=== PATIENT | male | born 1955 | race Caucasian/White ===

== ENCOUNTER 2017-01-04 06:47 | Day surgery (SDC) | payer BC ==
[2017-01-03 10:00] VITALS: BMI 24.0
[~2017-01-04 06:47] MED LIST: LACTATED RINGERS 1,000 ML IV SCH
[2017-01-04 07:09] VITALS: RESP 16; TEMP 98
[2017-01-04] MEDS ORDERED: PROPOFOL 10 MG/ML 20 ML VIAL IV ONE (07:57)
--- NOTE | 2017-01-04 08:13 | P.PCN ---
Date of Procedure: 01/04/17 Preoperative Diagnosis: Postoperative Diagnosis: Procedure(s) Performed: BRIEF HISTORY: Patient is a 61-year-old pleasant white male, scheduled for an elective colonoscopy as a part o screening for colorectal neoplasia. f PROCEDURE PERFORMED: Colonoscopy with biopsy. PREOPERATIVE DIAGNOSIS: Screening for colon cancer. IV sedation per Anesthesia. PROCEDURE: After informed consent was obtained, the patient, was brought into the endoscopy unit. IV sedation was administered by Anesthesia under continuous monitoring. Digital rectal examination was normal. Initially the Olympus CF- 160 flexible video colonoscope was then inserted in the rectum, gradually advanced into the cecum without any difficulty. Careful examination was performed as the scope was gradually being withdrawn. Ileocecal valve and the appendiceal orifice were visualized and appeared normal. Prep was excellent. Mucosa of the cecum, ascending colon, transverse colon, descending colon, sigmoid colon, and rectum appeared normal. Retroflexion was performed in the rectum and a 5 mm polyp was noted just proximal to the dentate line which was removed by biopsy. The patient tolerated the procedure well. IMPRESSION: 5 mm distal rectal polyp status post removal by biopsy. Rest of the colon appeared normal. RECOMMENDATIONS: Findings of this examination were discussed with the patient as well as his family. He was advised to follow with the biopsy results, and the biopsy shows a tubular adenoma she he can have a repeat colonoscopy in 5 years. Implants: Indications for Procedure: Operative Findings: Description of Procedure:
[2017-01-04 08:48] VITALS: BP 119/72; PULSE 69
== END 2017-01-04 09:01 | disposition home or self-care (01) ==
LOC: ORWHC2ENDO 06:47
PROVIDERS: ATTEND Internal Medicine Gastroenterology
DX: Z12.11 Encounter for screening for malignant neoplasm of colon (principal); D12.8 Benign neoplasm of rectum; I10 Essential (primary) hypertension; Z88.4 Allergy status to anesthetic agent; Z79.891 Long term (current) use of opiate analgesic; Z79.82 Long term (current) use of aspirin; Z79.899 Other long term (current) drug therapy
CPT/HCPCS: 45380; 88305; J2704

== ENCOUNTER → 2019-06-19 | Outpatient (CLI) | payer BC | END | disposition home or self-care (01) | LOC: RADECHMAIN 11:52 | PROVIDERS: ATTEND Family Medicine | DX: I47.1 Supraventricular tachycardia (principal); I49.1 Atrial premature depolarization | CPT/HCPCS: 93225; 93226 ==

== ENCOUNTER 2019-08-22 23:31 | Observation (INO) | payer BC ==
[2019-08-22 23:38] VITALS: RESP 18
--- NOTE | 2019-08-22 23:46 | ED ---
Chest Pain HPI - General Chief Complaint: Chest Pain Stated Complaint: STEMI Time Seen by Provider: 08/22/19 23:39 Source: EMS Mode of arrival: EMS Limitations: no limitations - History of Present Illness Initial Comments: This patient is a 63-year-old man with history of hypertension. He was sitting and playing cards a little under an hour ago, when he started feeling funny like he was going to pass out. The patient states she was going to go outside but felt too lightheaded. He states his son helped him to a little more comfortable seat and then he did have a passing out episode. The family activated EMS and EMS had radioed that the patient had ST elevation on their EKG. We were not able to receive an EKG by telemetry. On arrival, the patient states that he is feeling a bit better. He is denying chest pain and dyspnea. He states that he was sweaty when the episode occurred. Patient notes that he has recently started seeing Dr. Rosas, about 10 days ago. MD Complaint: other -: minutes(s) Onset: during rest Severity scale (1-10): 0 Improves With: nothing Worsens With: nothing Anginal Symptoms: diaphoresis Treatments Prior to Arrival: aspirin, oxygen - Related Data Home Medications Medication Instructions Recorded Confirmed Aspirin 81 mg PO DAILY 10/23/14 08/22/19 Metoprolol Tartrate [Lopressor] 25 mg PO BID 10/25/14 08/22/19 Hydrochlorothiazide [Hydrodiuril] 25 mg PO DAILY 08/22/19 08/22/19 amLODIPine [Norvasc] 5 mg PO DAILY 08/22/19 08/22/19 Allergies Allergy/AdvReac Type Severity Reaction Status Date / Time lidocaine HCl Allergy Unknown Verified 01/04/17 07:12 [From Xylocaine] losartan Allergy Rash/Hives Verified 08/22/19 23:38 Review of Systems ROS Statement: Those systems with pertinent positive or pertinent negative responses have been documented in the HPI. ROS Other: All systems not noted in ROS Statement are negative. Constitutional: Denies: fever, chills, weakness Respiratory: Denies: cough, dyspnea Cardiovascular: Reports: syncope. Denies: chest pain, palpitations, orthopnea, edema Gastrointestinal: Denies: abdominal pain, nausea, vomiting Genitourinary: Denies: dysuria, hematuria Musculoskeletal: Denies: back pain Skin: Denies: rash Neurological: Denies: headache, weakness, numbness EKG Findings - EKG Results: EKG: interpreted by ERMD, sinus rhythm (Rate approximately 80 bpm), normal axis, normal QRS Past Medical History Past Medical History: Hypertension Additional Past Medical History / Comment(s): tachycardia, History of Any Multi-Drug Resistant Organisms: None Reported Past Surgical History: Appendectomy, Hernia Repair Additional Past Surgical History / Comment(s): umbilical hernia, ORIF right ankle, Past Anesthesia/Blood Transfusion Reactions: No Reported Reaction Past Psychological History: No Psychological Hx Reported Smoking Status: Current every day smoker Past Alcohol Use History: None Reported Past Drug Use History: None Reported - Past Family History Sister(s) Family Medical History: Cancer General Exam Limitations: no limitations General appearance: alert, in no apparent distress Head exam: Present: atraumatic, normocephalic Eye exam: Present: normal appearance. Absent: scleral icterus, conjunctival injection ENT exam: Present: normal oropharynx Neck exam: Present: normal inspection Respiratory exam: Present: normal lung sounds bilaterally. Absent: respiratory distress, wheezes, rales, rhonchi, stridor Cardiovascular Exam: Present: regular rate, normal rhythm, normal heart sounds. Absent: systolic murmur, diastolic murmur, rubs, gallop GI/Abdominal exam: Present: soft. Absent: distended, tenderness, guarding, rebound, rigid, mass Extremities exam: Present: normal inspection, normal capillary refill. Absent: pedal edema, calf tenderness Back exam: Present: normal inspection. Absent: CVA tenderness (R), CVA tenderness (L) Neurological exam: Present: alert Skin exam: Present: warm, dry, intact, normal color. Absent: rash Course Vital Signs 08/22/19 08/22/19 08/22/19 23:32 23:49 23:59 Temperature 97.4 F L Pulse Rate 88 81 70 Respiratory 18 18 18 Rate Blood Pressure 143/93 139/104 133/99 O2 Sat by Pulse 100 100 100 Oximetry - Reevaluation(s) Reevaluation #1: 08/22/19 23:59 Patient is a 63-year-old man brought by ambulance after syncopal episode. We did receive a call from EMS that there twelve-lead ECG was showing what appeared to be inferior STEMI. We were not able to receive the ECG by telemetry. I discussed case with Dr. Rosas, who requested that we activate the greenskeeper laborer. On arrival here, the 12-lead ECG is not diagnostic. Dr. Rosas is evaluating the patient personall, and at this point patient does not appear to need to go directly to greenskeeper laborer. He continues to have no chest pain or dyspnea. Disposition Clinical Impression: Syncope Disposition: ADMITTED IP TO THIS HOSP Condition: Undetermined Referrals: Shelia Winter MD [Primary Care Provider] - 1-2 days
[2019-08-22 23:50] LABS: HCT 42.4 % (39.0-53.0); HGB 14.2 gm/dL (13.0-17.5); MCHC 33.5 g/dL (31.0-37.0); MCV 89.7 fL (80.0-100.0); Platelet Count 171 k/uL (150-450); RBC 4.73 m/uL (4.30-5.90); RDW 12.6 % (11.5-15.5); WBC 10.4 k/uL (3.8-10.6)
[2019-08-22] MEDS ORDERED: SODIUM CHLORIDE 0.9% 500 ML 500 ML IV STA (23:56)
[2019-08-22 23:59] LABS: Calcium 9.4 mg/dL (8.4-10.2); INR 0.9 (<1.2); Partial Thromboplastin Time 22.8 sec (22.0-30.0); Potassium 3.4 mmol/L (3.5-5.1); Prothrombin Time 9.9 sec (9.0-12.0); Total Bilirubin 0.4 mg/dL (0.2-1.3); Total Protein 6.9 g/dL (6.3-8.2)
[2019-08-23 00:12] LABS: Creatine Kinase 90 U/L (55-170)
--- NOTE | 2019-08-23 00:13 | XR ---
EXAMINATION TYPE: XR chest 1V portable DATE OF EXAM: 08/23/2019 COMPARISON: 10/25/2014 HISTORY: Short of breath. Syncope. TECHNIQUE: FINDINGS: There is no heart failure nor confluent pneumonic infiltrate. There is some scarring At the lung apices. There is no pleural effusion. Heart size is normal. IMPRESSION: Pleural and pulmonary scarring at the lung apices unchanged. No acute lung disease. Bren l heart.
[2019-08-23 00:23] LABS: Creatine Kinase MB 1.8 ng/mL (0.0-2.4); Troponin I <0.012 ng/mL (0.000-0.034)
[2019-08-23] MEDS ORDERED: NITROGLYCERIN SL TABS 0.4 MG TAB SUBLINGUAL PRN (00:32)
[2019-08-23] MEDS ORDERED: POTASSIUM CHLORIDE ER 20 MEQ TAB.ER PO STA (00:34)
[2019-08-23] MEDS ORDERED: SODIUM CHLORIDE 0.9% 500 ML 500 ML IV STA (00:34)
--- NOTE | 2019-08-23 01:43 | P.HPIM ---
History of Present Illness H&P Date: 08/23/19 Patient is a 63-year-old male with a PMH of hypertension who presented to the ED after an episode of syncope. History supplemented by the family at the bedside. Patient was reportedly at home, sitting in a chair and playing cards with his family when he suddenly began feeling lightheaded. He got up off the chair and sat into more comfortable chair, though continued to feel lightheaded and as th ough he was going to faint. He asked his son to help him and to the bathroom since he felt as though he at the time of bowel movement. While on his way to the bathroom, the patient became more lethargic and subsequently lost consciousness. The son was able to hold them and sat him down safely. As per the son, the patient was unresponsive and pale for roughly 1-2 minutes, and he then slowly began to come around. The patient then endorsed feeling very sweaty and tired upon regaining consciousness. EMS was subsequently activated and upon their arrival, and EKG strip showed some ST changes with the patient continuing to have diaphoresis and lightheadedness. A code STEMI was activated and the patient was subsequently brought to the emergency room. Upon arrival, the patient had reported that his symptoms had resolved entirely. He denied experiencing chest pain or shortness of breath during his symptoms. He denied any abnormal movements of the body or urinary incontinence. He denied tongue biting. Dr. Rosas was contacted regarding the patient, who then saw him at the bedside in the ED. The code STEMI was cancelled by Dr Rosas. The patient denied fever, cough, dizziness with standing, nausea, vomiting, abdominal pain, or headache. The patient underwent an extensive evaluation in the emergency room with an EKG that showed sinus rhythm at [address] elevation in leads II, III, V5 with no previous EKGs to compare to. Chest x-ray had revealed pleural and pulmonary scarring at the lung apices, with telemetry evaluation showing a WBC count of 10.4, hemoglobin 14.2, sodium 138, potassium 3.4, BUN 30, creatinine 1.13, and troponin less than 0.012. The patient reported that he had an episode of syncope 5 years ago, and which had not recurred since. Review of Systems Pertinent positives and negatives as discussed in HPI, a complete review of systems was performed and all other systems are negative. Past Medical History Past Medical History: Hypertension Additional Past Medical History / Comment(s): tachycardia, History of Any Multi-Drug Resistant Organisms: None Reported Past Surgical History: Appendectomy, Hernia Repair Additional Past Surgical History / Comment(s): umbilical hernia, ORIF right ankle, Past Anesthesia/Blood Transfusion Reactions: No Reported Reaction Past Psychological History: No Psychological Hx Reported Smoking Status: Current every day smoker Past Alcohol Use History: None Reported Past Drug Use History: None Reported - Past Family History Sister(s) Family Medical History: Cancer Medications and Allergies Home Medications Medication Instructions Recorded Confirmed Type Aspirin 81 mg PO DAILY 10/23/14 08/22/19 History Metoprolol Tartrate [Lopressor] 25 mg PO BID 10/25/14 08/22/19 History Hydrochlorothiazide [Hydrodiuril] 25 mg PO DAILY 08/22/19 08/22/19 History amLODIPine [Norvasc] 5 mg PO DAILY 08/22/19 08/22/19 History Allergies Allergy/AdvReac Type Severity Reaction Status Date / Time lidocaine HCl Allergy Unknown Verified 01/04/17 07:12 [From Xylocaine] losartan Allergy Rash/Hives Verified 08/22/19 23:38 Physical Exam Vitals: Vital Signs Temp Pulse Resp BP Pulse Ox 08/23/19 01:01 97.6 F 84 18 120/86 98 08/22/19 23:59 70 18 133/99 100 08/22/19 23:49 81 18 139/104 100 08/22/19 23:32 97.4 F L 88 18 143/93 100 Intake and Output 08/22/19 08/22/19 08/23/19 14:59 22:59 06:59 Other: Weight 76.385 kg General: non toxic, no distress, appears at stated age, normal weight Derm: no unusual rashes/lesions no unusual ecchymoses, warm, dry Head: atraumatic, normocephalic, symmetric Eyes: EOMI, no lid lag, anicteric sclera, pupils equal round reactive to light ENT: Nose and ears atraumatic, no thrush, no pharyngeal erythema Neck: No thyromegaly, no cervical lymphadenopathy, trachea midline, supple Mouth: no lip lesion, mucus membranes moist Cardiovascular: S1S2 reg, no murmur, positive posterior tibial pulse bilateral, no edema, capillary refill less than 2 seconds Lungs: CTA bilateral, no rhonchi, no rales , no accessory muscle use Abdominal: soft, nontender to palpation, no guarding, no appreciable organomegaly, normal bowel sounds Ext: no gross muscle atrophy, muscle strength 5 out of 5 in all 4 extremities grossly, no contractures, Neuro: CN II-XI grossly intact, light touch intact all 4 extremities, finger to nose within normal limits, Psych: Alert, oriented, appropriate affect Results CBC & Chem 7: 08/22/19 23:35 08/22/19 23:35 Labs: Abnormal Lab Results - Last 24 Hours (Table) 08/22/19 Range/Units 23:35 Potassium 3.4 L (3.5-5.1) mmol/L BUN 30 H (9-20) mg/dL Glucose 137 H (74-99) mg/dL Assessment and Plan Plan: Syncopal episode -Continue cardiac monitoring -Trend troponin -Dr. Rosas evaluated the patient at the bedside, and canceled code STEMI and recommended no immediate catheterization needed overnight -C/w Aspirin, Nitro -Echocardiogram -Orthostatics -Very unlikely to be a seizure based on the history Hypokalemia -Replace and monitor HTN -C/w home meds DVT prophylaxis -Lovenox subq The patient is admitted with an anticipated less than 2 midnight stay for evaluation of syncopal episode. CODE STATUS:Full Code Discussed with: Patient, daughter, Anticipated discharge date: 1-[address]: Home A total of 60 minutes was spent on the care of this complex patient more than 50% of the time was spent in counseling and care coordination.
[2019-08-23 07:04] LABS: African American GFR (CKD) >90 (>60 ml/min/1.73 sqM); Anion Gap 5 mmol/L; Blood Urea Nitrogen 24 mg/dL (9-20); Calcium 9.2 mg/dL (8.4-10.2); Carbon Dioxide 29 mmol/L (22-30); Chloride 105 mmol/L (98-107); Glucose 100 mg/dL (74-99); Non-African American GFR(CKD) >90 (>60 ml/min/1.73 sqM); Potassium 4.1 mmol/L (3.5-5.1); Sodium 139 mmol/L (137-145)
[2019-08-23] MEDS ORDERED: SODIUM CHLORIDE 0.9% 1,000 ML IV ONE (08:07)
--- NOTE | 2019-08-23 08:07 | P.PN ---
Progress Note - Text Progress Note Date: 08/23/19 patient seen and examined , RN at bedside Orthostatic vitals , negative patient had an episode of syncope, he is quite active around the house, with no limitations. another episode of syncope was 5 years ago had cardiac workup done for tachycardia, holter monitor showed episodes of sinus tachycardia. May 2019 he also recently had echo and stress test, records not available for review await cardiology input differential diagnosis possible dehydration , i will discontinue HCTZ. K was replaced concerned for possible arrhythmia , patient might benefit from tilt table test as outpatient await cardiology input , possible discharge today patient is asymptomatic at this time
[2019-08-23] MEDS ORDERED: amLODIPine 5 MG TAB PO SCH (09:00)
[2019-08-23] MEDS ORDERED: METOPROLOL TARTRATE 25 MG TAB PO SCH (09:00)
[2019-08-23] MEDS ORDERED: HYDROCHLOROTHIAZIDE 25 MG TAB PO SCH (09:00)
--- NOTE | 2019-08-23 09:06 | P.CRDCN ---
History of Present Illness History of present illness: This is Dr. Rosas dictating a consult on this patient The patient was interviewed and examined by me in the emergency room He was brought to the emergency room by EMS with a possible STEMI He had no chest discomfort and the STEMI was canceled IMPRESSION / ASSESSMENT: Episode of syncope associated with nausea and sweating Similar episode 4 years back Hypertension Early repolarization abnormality inferolaterally 1 mm, no notching PLAN: IV fluids 500 mL Continue antihypertensive therapy Observe on telemetry Cardiac enzymes HPI Patient was in his garage. They're having a family get together. The wood burner was turned on. The garage door was down While sitting he became very dizzy and lightheaded. The said he was staring into space for a while and he was very nauseous and extremely sweaty and then collapsed but his son caught him and time no chest discomfort no palpitations He had been doing fine prior to that He's had a similar episode about 4 years back. This was also in wintertime in the garage with the family and a wood burner was on an obviously the garage to was down. He had the exact same symptoms ROS: No fever chills or rigors, no cough, phlegm or expectoration, Positive nausea vomiting diarrhea no hematuria, dysuria, no musculoskeletal complaints, no strokes or seizures, no skin lesions. EXAMINATION: 133/99 mmHg normal heart rates Heart rate 80s Afebrile 97.6F Breath sounds are clear no rhonchi no crackles Heart sounds S1 and S2 are normal no murmurs or gallops or rub Breath sounds are clear No JVD No lower extremity edema When I examined the patient he was absolutely pain-free no shortness of breath and absolutely no symptoms REVIEW OF LABS, ECG & MEDICAL DATA Twelve-lead EKG shows early repolarization abnormality inferolaterally Sodium 139 potassium 3.4, BUN 30 creatinine 1.13 glucose 137 2 troponins are normal TSH is 3.8 Past Medical History Past Medical History: Hypertension Additional Past Medical History / Comment(s): tachycardia, History of Any Multi-Drug Resistant Organisms: None Reported Past Surgical History: Appendectomy, Hernia Repair Additional Past Surgical History / Comment(s): umbilical hernia, ORIF right ankle, Past Anesthesia/Blood Transfusion Reactions: No Reported Reaction Past Psychological History: No Psychological Hx Reported Smoking Status: Current every day smoker Past Alcohol Use History: None Reported Past Drug Use History: None Reported - Past Family History Sister(s) Family Medical History: Cancer Medications and Allergies Home Medications Medication Instructions Recorded Confirmed Type Aspirin 81 mg PO DAILY 10/23/14 08/23/19 History Metoprolol Tartrate [Lopressor] 25 mg PO BID 10/25/14 08/23/19 History Hydrochlorothiazide [Hydrodiuril] 25 mg PO DAILY 08/22/19 08/23/19 History amLODIPine [Norvasc] 5 mg PO DAILY 08/22/19 08/23/19 History Allergies Allergy/AdvReac Type Severity Reaction Status Date / Time lidocaine HCl Allergy Unknown Verified 01/04/17 07:12 [From Xylocaine] losartan Allergy Rash/Hives Verified 08/22/19 23:38 Physical Exam Vitals: Vital Signs Temp Pulse Pulse Pulse Pulse Resp BP 08/23/19 07:57 98.0 F 91 104 H 76 18 08/23/19 03:47 18 08/23/19 01:01 97.6 F 84 18 120/86 08/23/19 00:59 97.8 F 18 08/22/19 23:59 70 18 133/99 08/22/19 23:49 81 18 139/104 08/22/19 23:32 97.4 F L 88 18 143/93 BP BP BP BP Pulse Ox 08/23/19 07:57 124/81 148/92 123/68 99 08/23/19 03:47 08/23/19 01:01 98 08/23/19 00:59 122/76 98 08/22/19 23:59 100 08/22/19 23:49 100 08/22/19 23:32 100 Intake and Output 08/22/19 08/23/19 08/23/19 22:59 06:59 14:59 Intake Total 1000 Balance 1000 Intake: Intake, IV Titration 1000 Amount Sodium Chloride 0.9% 500 500 ml 500 ml @ 1000 mls/hr IV .Q30M STA Rx#: [id number] Sodium Chloride 0.9% 500 500 ml 500 ml @ 1000 mls/hr IV .Q30M STA Rx#: [id number] Other: Weight 73.3 kg Results 08/22/19 23:35 08/23/19 06:18 Cardiac Enzymes 08/22/19 08/22/19 08/23/19 Range/Units 23:35 23:35 06:18 AST 31 (17-59) U/L CK-MB (CK-2) 1.8 (0.0-2.4) ng/mL Troponin I <0.012 <0.012 (0.000-0.034) ng/mL Coagulation 08/22/19 Range/Units 23:35 PT 9.9 (9.0-12.0) sec APTT 22.8 (22.0-30.0) sec CBC 08/22/19 Range/Units 23:35 WBC 10.4 (3.8-10.6) k/uL RBC 4.73 (4.30-5.90) m/uL Hgb 14.2 (13.0-17.5) gm/dL Hct 42.4 (39.0-53.0) % Plt Count 171 (150-450) k/uL Comprehensive Metabolic Panel 08/22/19 08/23/19 Range/Units 23:35 06:18 Sodium 138 139 (137-145) mmol/L Potassium 3.4 L 4.1 (3.5-5.1) mmol/L Chloride 101 105 (98-107) mmol/L Carbon Dioxide 29 29 (22-30) mmol/L BUN 30 H 24 H (9-20) mg/dL Creatinine 1.13 0.78 (0.66-1.25) mg/dL Glucose 137 H 100 H (74-99) mg/dL Calcium 9.4 9.2 (8.4-10.2) mg/dL AST 31 (17-59) U/L ALT 21 (4-49) U/L Alkaline Phosphatase 79 (38-126) U/L Total Protein 6.9 (6.3-8.2) g/dL Albumin 4.0 (3.5-5.0) g/dL Current Medications Generic Name Dose Route Start Last Admin Trade Name Freq PRN Reason Stop Dose Admin Amlodipine Besylate 5 mg 08/23/19 09:00 08/23/19 08:01 Norvasc PO 5 mg DAILY [facility] Administration Aspirin 325 mg 08/24/19 09:00 Aspirin PO DAILY [facility] Metoprolol Tartrate 25 mg 08/23/19 09:00 08/23/19 08:01 Lopressor PO 25 mg BID [facility] Administration Nitroglycerin 0.4 mg 08/23/19 00:32 Nitrostat SUBLINGUAL Q5M PRN Chest Pain Intake and Output 08/22/19 08/23/19 08/23/19 22:59 06:59 14:59 Intake Total 1000 Balance 1000 Intake: Intake, IV Titration 1000 Amount Sodium Chloride 0.9% 500 500 ml 500 ml @ 1000 mls/hr IV .Q30M [facility] Rx#: [id number] Sodium Chloride 0.9% 500 500 ml 500 ml @ 1000 mls/hr IV .Q30M STA Rx#: [id number] Other: Weight 73.3 kg 08/22/19 23:35 08/23/19 06:18
[2019-08-23 12:19] VITALS: BP 114/72; PULSE 86; TEMP 98.2
--- NOTE | 2019-08-23 13:54 | P.DS ---
Providers Date of admission: 08/23/19 00:32 Attending physician: Adrian Tipton MD Consults: 08/23/19 00:32 Consult Physician Stat Consulting Provider: Terry Rosas Consult Reason/Comments: syncope Do you want consulting provider notified?: Already Contacted Primary care physician: Shelia Winter [facility] Course: FINIAL DIAGNOSIS AT DISCHARGE syncope dehydration hypertension 63-year-old male with hypertension. Well-controlled with medications. Comes in after an episode of syncope seems like he was playing cards with family in the carotids with with burner on when he suddenly felt tired decided to rest on a chair and then when went to the bathroom he was calm pain by his son he passed out his son, no injuries reported and he was brought to the hospital for evaluation. EMS did an EKG and was concerned regarding a STEMI which was activated but then canceled by cardiology who evaluated the patient in the ER upon presentation. Labs overall were unremarkable except for elevated BUNs slig htly elevated creatinine which could be suggestive of dehydration. Patient received 3 L of IV fluids in the ER. Hydrochlorothiazide was held. patient seen and examined , RN at bedside Orthostatic vitals , negative patient had an episode of syncope, he is quite active around the house, with no limitations. another episode of syncope was 5 years ago had cardiac workup done for tachycardia, holter monitor showed episodes of sinus tachycardia. May 2019 he also recently had echo and stress test, records not available for review Vital signs stable Lungs clear to auscultation bilaterally no wheezing Heart normal S1-S2 regular rate rhythm no murmurs no peripheral edema Patient alert oriented to place person and time fair judgment Cardiology evaluated the patient and recommended no further intervention, to resume his medications upon discharge, and to follow-up within one week outpatient Follow-up with PCP within a week Patient discharged in stable clinical condition 20 minutes were spent discharging this patient, and more than 50% of the time was spent in counseling the patient and family and in coordinating care. Patient Condition at Discharge: Stable Plan - Discharge Summary Discharge Rx Participant: Yes New Discharge Prescriptions: Continue Aspirin 81 mg PO DAILY Metoprolol Tartrate [Lopressor] 25 mg PO BID amLODIPine [Norvasc] 5 mg PO DAILY Hydrochlorothiazide [Hydrodiuril] 25 mg PO DAILY Discharge Medication List Aspirin 81 mg PO DAILY 10/23/14 [History] Metoprolol Tartrate [Lopressor] 25 mg PO BID 10/25/14 [History] Hydrochlorothiazide [Hydrodiuril] 25 mg PO DAILY 08/22/19 [History] amLODIPine [Norvasc] 5 mg PO DAILY 08/22/19 [History] Follow up Appointment(s)/Referral(s): Terry Rosas MD [STAFF PHYSICIAN] - 3 Weeks (Follow Dr. Rosas as previously scheduled Patient has a follow-up appointment) Shelia Winter MD [Primary Care Provider] - 1-2 days Patient Instructions/Handouts: Syncope (DC) Discharge Disposition: HOME SELF-CARE
[2019-08-24] MEDS ORDERED: ASPIRIN 325 MG TAB PO SCH (09:00)
== END 2019-08-23 14:30 | disposition home or self-care (01) ==
LOC: EC 23:31 → 3SCARD 08-23 00:32
PROVIDERS: ADMIT Internal Medicine; ATTEND Internal Medicine
DX: R55 Syncope and collapse (principal); E86.0 Dehydration; I10 Essential (primary) hypertension; E87.6 Hypokalemia; F17.200 Nicotine dependence, unspecified, uncomplicated; Z79.82 Long term (current) use of aspirin; Z79.899 Other long term (current) drug therapy; Z88.4 Allergy status to anesthetic agent; Z88.8 Allergy status to other drugs, medicaments and biological substances; Z90.49 Acquired absence of other specified parts of digestive tract; Z98.890 Other specified postprocedural states; Z87.81 Personal history of (healed) traumatic fracture; Z80.9 Family history of malignant neoplasm, unspecified
CPT/HCPCS: 99285; 36415; 93005; 80053; 80048; 84443; 82550; 82553; 84484 ×2; 85027; 85610; 85730; 71045; G0378

== ENCOUNTER → 2019-10-21 | Outpatient (CLI) | payer BC ==
[2019-10-21 10:57] LABS: HCT 43.6 % (39.0-53.0); HGB 14.7 gm/dL (13.0-17.5); MCH 30.3 pg (25.0-35.0); MCHC 33.7 g/dL (31.0-37.0); Mean Platelet Volume 6.9; Platelet Count 217 k/uL (150-450); RBC 4.84 m/uL (4.30-5.90); RDW 13.3 % (11.5-15.5)
[2019-10-21 11:06] LABS: African American GFR (CKD) >90 (>60 ml/min/1.73 sqM); Anion Gap 7 mmol/L; Blood Urea Nitrogen 23 mg/dL (9-20); Carbon Dioxide 31 mmol/L (22-30); Chloride 99 mmol/L (98-107); Glucose 99 mg/dL (74-99); Non-African American GFR(CKD) 85 (>60 ml/min/1.73 sqM); Potassium 4.1 mmol/L (3.5-5.1); Sodium 137 mmol/L (137-145)
== END | disposition home or self-care (01) ==
LOC: LABPAT 10:15
PROVIDERS: ATTEND Internal Medicine Clinical Cardiac Electrophysiology
DX: Z01.818 Encounter for other preprocedural examination (principal); I10 Essential (primary) hypertension; I47.1 Supraventricular tachycardia
CPT/HCPCS: 36415; 80051; 82565; 82947; 84520; 85027

== ENCOUNTER → 2019-12-15 | Outpatient (CLI) | payer BC | END | disposition home or self-care (01) | LOC: LABWHC1 11:52 | PROVIDERS: ATTEND Internal Medicine Clinical Cardiac Electrophysiology | DX: Z11.59 Encounter for screening for other viral diseases (principal) | CPT/HCPCS: 87635 ==

== ENCOUNTER 2019-12-17 13:29 | Day surgery (SDC) | payer BC ==
[2019-12-15 09:09] VITALS: BMI 23.7
[~2019-12-17 13:29] MED LIST changes: +SODIUM CHLORIDE 0.9% 1,000 ML IV SCH
[2019-12-17] MEDS ORDERED: SODIUM CHLORIDE 0.9% 1,000 ML IV ONE (13:51)
[2019-12-17 14:04] LABS: Basophils # (A) 0.1 k/uL (0-0.2); Basophils % (A) 1 %; Eosinophils # (A) 0.3 k/uL (0-0.7); Eosinophils % (A) 4 %; HCT 42.9 % (39.0-53.0); HGB 14.2 gm/dL (13.0-17.5); Lymphocytes # (A) 2.7 k/uL (1.0-4.8); Lymphocytes % (A) 33 %; MCH 30.5 pg (25.0-35.0); MCHC 33.1 g/dL (31.0-37.0); MCV 92.4 fL (80.0-100.0); Mean Platelet Volume 7.1; Monocytes # (A) 0.6 k/uL (0-1.0); Monocytes % (A) 7 %; Neutrophils # (A) 4.4 k/uL (1.3-7.7); Neutrophils % (A) 54 %; Platelet Count 236 k/uL (150-450); RBC 4.65 m/uL (4.30-5.90); RDW 13.3 % (11.5-15.5); WBC 8.2 k/uL (3.8-10.6)
[2019-12-17 14:24] LABS: African American GFR (CKD) >90 (>60 ml/min/1.73 sqM); Anion Gap 9 mmol/L; Blood Urea Nitrogen 21 mg/dL (9-20); Calcium 9.5 mg/dL (8.4-10.2); Carbon Dioxide 31 mmol/L (22-30); Chloride 98 mmol/L (98-107); Glucose 98 mg/dL (74-99); Non-African American GFR(CKD) >90 (>60 ml/min/1.73 sqM); Potassium 3.7 mmol/L (3.5-5.1); Sodium 138 mmol/L (137-145)
--- NOTE | 2019-12-17 16:09 | P.HPCAR ---
History of Present Illness This is Dr. Rosas dictating an H/P on this patient The patient was interviewed and examined by me IMPRESSION / ASSESSMENT: Recurrent palpitations, Paroxysmal atrial tachycardia Partial suppression on flecainide History of vasovagal syncope Hypertension Current smoker No fever chills cough expectoration or cold-like symptoms PLAN: Diagnostic EP study and radiofrequency ablation today HPI Patient continues to have palpitations on flecainide. He held his flecainide for a week prior to this ablation and his palpitations increased. The last for about 30 minutes associated with a feeling of jitteriness palpitations and anx iety No loss of consciousness ROS: No fever chills or rigors, no cough, phlegm or expectoration, no nausea, vomiting or diarrhea, no hematuria, dysuria, no musculoskeletal complaints, no strokes or seizures, no skin lesions. EXAMINATION: Afebrile 98.1F Pulse rate in the 80s normal respirations nonlabored line blood pressure 116/70 mmHg Oxygen saturation 99% on room air No carotid bruits No JVD 9 no hepatojugular reflux Normal heart sounds no murmurs Breath sounds are clear no rhonchi no crackles Abdomen is soft No lower extremity edema REVIEW OF LABS, ECG & MEDICAL DATA 2-D echo shows preserved LV systolic function no valvular abnormalities Holter monitor shows frequent runs of sustained atrial tachycardia with RVR heart rate about 115 beats a minute Hemoglobin 14.2 Sodium 138 potassium 3.7 BUN 21 creatinine 0.87 GFR 90 coronavirus PCR nondetectable Physical Exam Vitals: Vital Signs Temp Pulse Resp BP Pulse Ox 12/17/19 13:53 98.1 F 82 16 116/70 99 Intake and Output 12/17/19 12/17/19 12/17/19 06:59 14:59 22:59 Intake Total 100 Balance 100 Intake: IV 100 Other: Weight 77.2 kg Past Medical History Past Medical History: COPD, Hypertension Additional Past Medical History / Comment(s): See Dr Pond H&P, spontaneous pneumothorax, 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, "small amount of blood in urine", 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 History of Any Multi-Drug Resistant Organisms: None Reported Past Surgical History: Appendectomy, Hernia Repair, Orthopedic Surgery Additional Past Surgical History / Comment(s): umbilical hernia, ORIF right ankle, Past Anesthesia/Blood Transfusion Reactions: No Reported Reaction Smoking Status: Current every day smoker - Past Family History Sister(s) Family Medical History: Cancer Physical Examination Vital Signs Temp Pulse Resp BP Pulse Ox 12/17/19 13:53 98.1 F 82 16 116/70 99 Intake and Output 12/17/19 12/17/19 12/17/19 06:59 14:59 22:59 Intake Total 100 Balance 100 Intake: IV 100 Other: Weight 77.2 kg Results 12/17/19 13:45 12/17/19 13:45 CBC 12/17/19 Range/Units 13:45 WBC 8.2 (3.8-10.6) k/uL RBC 4.65 (4.30-5.90) m/uL Hgb 14.2 (13.0-17.5) gm/dL Hct 42.9 (39.0-53.0) % Plt Count 236 (150-450) k/uL Comprehensive Metabolic Panel 12/17/19 Range/Units 13:45 Sodium 138 (137-145) mmol/L Potassium 3.7 (3.5-5.1) mmol/L Chloride 98 (98-107) mmol/L Carbon Dioxide 31 H (22-30) mmol/L BUN 21 H (9-20) mg/dL Creatinine 0.87 (0.66-1.25) mg/dL Glucose 98 (74-99) mg/dL Calcium 9.5 (8.4-10.2) mg/dL Current Medications Generic Name Dose Route Start Last Admin Trade Name Freq PRN Reason Stop Dose Admin Sodium Chloride 1,000 mls @ 20 mls/hr 12/17/19 05:55 Saline 0.9% IV .Q24H FAM Lactated Ringer's 1,000 mls @ 20 mls/hr 12/17/19 05:55 Lactated Ringers IV .Q24H FAM Intake and Output 12/17/19 12/17/19 12/17/19 06:59 14:59 22:59 Intake Total 100 Balance 100 Intake: IV 100 Other: Weight 77.2 kg Patient Weight 12/18/19 06:59 Weight 77.2 kg 12/17/19 13:45 12/17/19 13:45
[2019-12-17] MEDS ORDERED: ISOPROTERENOL 250 MCG/1.25 ML SYR IV ONE (16:18)
[2019-12-17] MEDS ORDERED: fentaNYL (PF) 50 MCG/ML 2 ML AMP ONE (16:18)
[2019-12-17] MEDS ORDERED: MIDAZOLAM 2 MG/2 ML VIAL ONE (16:18)
[2019-12-17] MEDS ORDERED: BUPIVACAINE (PF) 0.5% 30 ML VIAL SQ ONE (16:30)
[2019-12-17] MEDS ORDERED: ACETAMINOPHEN IV (For NPO) 1,000 MG in EMPTY BAG 1 BAG IVPB ONE (17:46)
[2019-12-17] MEDS ORDERED: ACETAMINOPHEN TAB 325 MG TAB PO PRN (17:46)
--- NOTE | 2019-12-17 18:16 | P.PRLE ---
RE: Bertrand Edge Dear Shelia Mr. Bertrand Nichols was brought in for EP study to evaluate for atrial tachycardia and perform an atrial tachycardia ablation. However it turned out that he actually has atrial fibrillation was simply looks like atrial tachycardia, on the surface ECG. Therefore I implanted a loop monitor instead and have temporarily anticoagulated him. He does have a history of hypertension I will restart him again on flecainide and once we document frequent breakthrough episodes and I would recommend in A. fib ablation I will also recalculate his KWADWO VASC core for long-term anticoagulation Thank you for entrusting me with the care of the patient Warm regards Sincerely Terry Rosas
--- NOTE | 2019-12-17 18:22 | P.PCN ---
Preoperative Diagnosis: Loop monitor implant Primary physicians: Dr. Shelia Winter Elementary Science Teacher: Dr. Rosas Indication: Paroxysmal atrial fibrillation, symptomatic Patient was brought to the EP lab in a fasting state. Written informed consent was obtained prior to the procedure. The left pectoral area was prepped and draped per protocol. Intravenous antibiotic was administered preoperatively. A subcutaneous Loop monitor was implanted successfully and the wound was closed per protocol. The device was programmed to detect significant barry- arrhythmic and tachy-arrhythmic events, per protocol. Device and programming details: A. fib protocol Anesthesia was present and provided conscious sedation for this procedure as well as from the EP study that preceded it
--- NOTE | 2019-12-17 18:24 | P.PN ---
Progress Note - Text Patient states that he had 2 episodes of getting nauseous and passing out while receiving subcutaneous lidocaine as a kid His symptoms are consistent with vasovagal syncope I have documented vasovagal syncope in this patient This does not represent lidocaine ALLERGY
[2019-12-17] MEDS ORDERED: METOPROLOL TARTRATE 50 MG TAB PO STA (20:25)
[2019-12-17] MEDS: APIXABAN 5 MG TAB PO SCH (20:51)
[2019-12-17] MEDS: FLECAINIDE 50 MG TAB PO SCH (20:51)
[2019-12-17 22:07] VITALS: RESP 18
--- NOTE | 2019-12-18 02:05 | PCN ---
PROCEDURE NOTE Mr. Edge is a 64-year-old male patient with a history of hypertension who carries a diagnosis of atrial tachycardia and is having breakthrough episodes on flecainide. He was brought to the EP lab for an atrial tachycardia mapping and ablation. Patient was brought to the EP lab in a fasting state. Written informed consent was obtained prior to the procedure. He had stopped flecainide a week prior to this. Venous sheaths were placed in the right and left femoral veins and via these four diagnostic catheters were positioned in the heart (high right atrial catheter, His bundle catheter, RV catheter and coronary sinus catheter). Sinus cycle length 974 milliseconds, SC interval 144 milliseconds, QRS 86 milliseconds, QT 423 milliseconds. AH interval 76 milliseconds, HV interval 39 milliseconds. Sinus node recovery times at 600, 500 and 400 milliseconds were 1237, 1168 and 1138 milliseconds. Corresponding corrected sinus node recovery times were within normal limits. AV node Wenckebach block 490 milliseconds, VA Wenckebach block 540 milliseconds. Atrial extra stimulation was performed from the high right atrium and from 2 sites in the coronary sinus up to double extra stimuli. Very brief nonsustained runs of irregular atrial tachycardia induced. Burst stimulation performed from the coronary sinus resulted in slow transient atrial fibrillation lasting less than 30 seconds. The burst stimulation from the right ventricle was performed for 400 milliseconds down to 300 milliseconds. No arrhythmias induced. Isuprel was started wide open and burst stimulation was performed from the high right atrium. Sustained atrial fibrillation was induced. No other arrhythmias induced. There was no evidence of slow pathway conduction or accessory pathway conduction noted. At this point, all catheters were removed and patient was prepared for implantation of a loop monitor. I did speak to the patient as well as to the patient's regarding this. IMPRESSION: 1. Diagnostic EP study revealing normal baseline measurements. 2. Normal sinus node function. 3. Mild mildly abnormal AV node function. 4. Inducible atrial fibrillation. 5. No other inducible arrhythmias. PLAN: 1. Implantation of loop monitor. 2. Continue flecainide and consideration for an atrial fibrillation ablation for breakthrough episodes in the future. For now, we will anticoagulate the patient and recalculate his CHADS-VASC score. He does have a history of hypertension. MMODL / IJN: [id number] /
[2019-12-18 04:53] VITALS: PULSE 88
[2019-12-18] MEDS ORDERED: FLECAINIDE 50 MG TAB PO STA (07:30)
[2019-12-18 07:43] VITALS: BP 115/71; TEMP 98
[2019-12-18] MEDS: APIXABAN 5 MG TAB PO SCH (08:02)
[2019-12-18] MEDS: FLECAINIDE 50 MG TAB PO SCH (08:02)
--- NOTE | 2019-12-18 08:11 | P.DS ---
Providers Attending physician: Terry Rosas [facility] Course: Patient is resting comfortably in bed. He remains in atrial fibrillation Anticoagulation was started yesterday He is a very localized discomfort over the loop incision site but otherwise has no chest discomfort No dizziness lightheadedness No breathing problems overnight no orthopnea His groins of healed well there is no tenderness no swelling On examination blood pressure is 115/71 mmHg pulse rate in the 80s and 90s irregular in A. fib afebrile 90F Breath sounds are clear no rhonchi no crackles No murmurs over the precordium irregular rhythm Abdomen soft Extremities warm no edema Impression Paroxysmal atrial fibrillation with breakthrough episodes on flecainide Hypertension Mild AV node disease KWADWO VASC core at this time appears to be 1, history of hypertension only we will reevaluate KWADWO VASC core to assess long-term need for adequate ventilation For now I would continue anticoagulation with either ELIQUIS 5 mg twice daily or Xarelto 20 mg daily Topamax 150 g twice daily The prescriptions were given to the nurse Continue Norvasc metoprolol hydrochlorothiazide flecainide 50 mg twice daily and a baby aspirin along with anticoagulation for stroke prevention Loop monitor was implanted to assess atrial fibrillation that he's been having breakthrough episodes on flecainide and I will be recommending in A. fib ablation with pulmonary vein isolation in the near future Plan Anticoagulate Consider pulmonary vein isolation Continue antihypertensive therapy Suture removal in 5 days Follow-up in 4-6 weeks Patient Condition at Discharge: Stable Plan - Discharge Summary Discharge Rx Participant: Yes New Discharge Prescriptions: New Apixaban [Eliquis] 5 mg PO BID #180 tab No Action RX: Aspirin 81 mg PO HS RX: Metoprolol Tartrate [Lopressor] 25 mg PO BID RX: amLODIPine [Norvasc] 5 mg PO DAILY RX: Hydrochlorothiazide [Hydrodiuril] 25 mg PO DAILY Flecainide [Tambocor] 50 mg PO Q12HR Albuterol Sulfate [Proair Hfa] 1 - 2 puff INHALATION DIRECTED PRN PRN Reason: Shortness Of Breath Discharge Medication List RX: Aspirin 81 mg PO HS 10/23/14 [History] RX: Metoprolol Tartrate [Lopressor] 25 mg PO BID 10/25/14 [History] RX: Hydrochlorothiazide [Hydrodiuril] 25 mg PO DAILY 08/22/19 [History] RX: amLODIPine [Norvasc] 5 mg PO DAILY 08/22/19 [History] Albuterol Sulfate [Proair Hfa] 1 - 2 puff INHALATION DIRECTED PRN 12/15/19 [History] Flecainide [Tambocor] 50 mg PO Q12HR 12/15/19 [History] Apixaban [Eliquis] 5 mg PO BID #180 tab 12/17/19 [Rx] Follow up Appointment(s)/Referral(s): Terry Rosas MD [STAFF PHYSICIAN] - 1 Week Activity/Diet/Wound Care/Special Instructions: Post EP study - Ablation instructions 1. Keep access sites dry for 2 days. 2. No heavy lifting or straining for 2 days. 3. Avoid bending the hips repeatedly for 2 days. 4. You may go up and down stairs slowly Call if the following is noted 1. Bleeding, increasing swelling or pain at the access sites. 2. Increasing chest discomfort, especially upon taking a deep breath. 3. Increasing shortness of breath, at rest or with exertion. 4. Undue cough / phlegm 5. Difficulty or pain while swallowing. 6. Pain or change in color in the extremities. 7. Fever, chills, rigors. 8. Increasing headache or neurologic symptoms. 9. Dizziness, fainting, palpitations Continue all home medications New medication ELIQUIS 5 mg twice daily Follow-up in the device clinic within one week for suture removal Follow Dr. Rosas in about 2 months Discharge Disposition: HOME SELF-CARE
[2019-12-18] MEDS ORDERED: METOPROLOL TARTRATE 25 MG TAB PO SCH (09:00)
[2019-12-18] MEDS ORDERED: HYDROCHLOROTHIAZIDE 25 MG TAB PO SCH (09:00)
[2019-12-18] MEDS ORDERED: ASPIRIN 81 MG PO SCH (09:00)
[2019-12-18] MEDS ORDERED: amLODIPine 5 MG TAB PO SCH (09:00)
== END 2019-12-18 10:26 | disposition home or self-care (01) ==
LOC: CATHEP 13:29 → 3SCARD 18:20 → CATHEP 12-18 10:26
PROVIDERS: ATTEND Internal Medicine Clinical Cardiac Electrophysiology
DX: I48.0 Paroxysmal atrial fibrillation (principal); I47.1 Supraventricular tachycardia; I10 Essential (primary) hypertension; F17.200 Nicotine dependence, unspecified, uncomplicated; J44.9 Chronic obstructive pulmonary disease, unspecified; M19.019 Primary osteoarthritis, unspecified shoulder; Z79.82 Long term (current) use of aspirin; Z86.69 Personal history of other diseases of the nervous system and sense organs; Z90.49 Acquired absence of other specified parts of digestive tract; Z98.890 Other specified postprocedural states; Z80.9 Family history of malignant neoplasm, unspecified
CPT/HCPCS: 93623; 93620; 33285; 80048; 85025; C1894; C1769 ×2; C1730 ×3; C1764; J2250; J3010; J0131

== ENCOUNTER → 2020-02-04 | Outpatient (CLI) | payer BC ==
[2020-02-04 11:27] LABS: African American GFR (CKD) >90 (>60 ml/min/1.73 sqM); Anion Gap 8 mmol/L; Blood Urea Nitrogen 19 mg/dL (9-20); Carbon Dioxide 30 mmol/L (22-30); Chloride 101 mmol/L (98-107); Glucose 95 mg/dL (74-99); Non-African American GFR(CKD) 85 (>60 ml/min/1.73 sqM); Sodium 139 mmol/L (137-145)
[2020-02-04 11:38] LABS: HCT 45.5 % (39.0-53.0); HGB 14.8 gm/dL (13.0-17.5); MCH 30.1 pg (25.0-35.0); MCHC 32.5 g/dL (31.0-37.0); MCV 92.8 fL (80.0-100.0); Mean Platelet Volume 7.4; Platelet Count 232 k/uL (150-450); RDW 12.6 % (11.5-15.5); WBC 7.3 k/uL (3.8-10.6)
== END | disposition home or self-care (01) ==
LOC: LABPAT 09:32
PROVIDERS: ATTEND Internal Medicine Clinical Cardiac Electrophysiology
DX: Z01.818 Encounter for other preprocedural examination (principal); I10 Essential (primary) hypertension; I48.0 Paroxysmal atrial fibrillation
CPT/HCPCS: 36415; 80051; 82565; 82947; 84520; 85027

== ENCOUNTER 2020-02-11 13:35 | Day surgery (SDC) | payer BC ==
[2020-02-09 14:14] VITALS: BMI 22.4
[2020-02-11] MEDS ORDERED: SODIUM CHLORIDE 0.9% 1,000 ML IV ONE (13:54)
[2020-02-11] MEDS ORDERED: PHENYLEPHRINE-0.9% NACL SYG 1 MG/10 ML SYRINGE ONE (14:22)
[2020-02-11] MEDS ORDERED: SUCCINYLCHOLINE CHLORIDE VIAL 200 MG/10 ML VIAL IV ONE (14:22)
[2020-02-11] MEDS ORDERED: PROTAMINE SULFATE 10 MG/ML 5 ML VIAL IV ONE (14:22)
[2020-02-11] MEDS ORDERED: ISOPROTERENOL 250 MCG/1.25 ML SYR IV ONE (14:22)
[2020-02-11] MEDS ORDERED: PROPOFOL 10 MG/ML 20 ML VIAL IV ONE (14:22)
[2020-02-11] MEDS ORDERED: GLYCOPYRROLATE 0.2 MG/ML 2 ML VIAL ONE (14:22)
[2020-02-11] MEDS ORDERED: fentaNYL (PF) 50 MCG/ML 2 ML AMP ONE (14:22)
[2020-02-11] MEDS ORDERED: MIDAZOLAM 2 MG/2 ML VIAL ONE (14:22)
[2020-02-11] MEDS ORDERED: HEPARIN SODIUM,PORCINE 5,000 UNIT/ML 1 ML VIAL ONE (14:22)
[2020-02-11] MEDS ORDERED: HEPARIN SOD,PORK IN 0.45% NACL 25,000 UNIT in 0.45% NACL 1 250ML.BAG IV ONE (14:30)
[2020-02-11] MEDS ORDERED: LIDOCAINE 1% INJ 10MG/ML (20 ML MDV) ONE (14:44)
[2020-02-11] MEDS ORDERED: LIDOCAINE 1% INJ 10MG/ML (20 ML MDV) SQ ONE (15:22)
[2020-02-11] MEDS ORDERED: LACTATED RINGERS 1,000 ML IV ONE (17:00)
[2020-02-11] MEDS ORDERED: IOPAMIDOL-370 100ML BTL INJ ONE (17:19)
[2020-02-11] MEDS ORDERED: HYDROcodone/APAP 5-325MG 1 EACH TAB PO PRN (17:19)
[2020-02-11] MEDS ORDERED: ACETAMINOPHEN TAB 325 MG TAB PO PRN (17:19)
[2020-02-11] MEDS ORDERED: ACETAMINOPHEN IV (For NPO) 1,000 MG in EMPTY BAG 1 BAG IVPB ONE (17:19)
--- NOTE | 2020-02-11 17:25 | P.PCN ---
Preoperative Diagnosis: Diagnosis Atrial fibrillation, symptomatic, refractory to therapy, paroxysmal Result No left or right atrial appendage mass seen on intracardiac echo Successful pulmonary vein isolation of all veins using cryo-ablation Complete entrance block in all 4 veins confirmed No evidence for phrenic nerve injury Diagnostic EP study following that on and off Isuprel No inducible atrial tachycardia, no inducible atrial fibrillation at the end of the procedure Esophageal deflection YES , right-sided esophagus Electrical cardioversion with a synchronized shock across the chest NO Procedure details Patient was brought to the EP lab in a fasting state. Written informed consent was obtained prior to the procedure. Procedure performed under general anesthesia After initial muscle relaxant use, muscle relaxants were not given thereafter in order to assess phrenic nerve during procedure. Patient prepped and draped as per protocol Full cryo-set up with standard preparation of the cryoablation tools done. Femoral Venous access obtained on the right and left groins Venous and arterial Sheaths placed. Diagnostic catheters for the high right atrium, phrenic nerve stimulation and pacing, His bundle, RV and coronary sinus placed Intracardiac echo catheter placed. Long sheath placed in the right atrium Left and right transseptal catheterization performed under intracardiac echo guidance. Intravenous heparin with aCT above 300 Later, catheter positioning and balloon positioning in the left atrium, under intracardiac echo guidance Diagnostic EP study with Drug infusion Coronary sinus pacing and recording Baseline measurements Patient was in sinus rhythm, sinus cycle length 861 ms, QRS 91 ms QT 361 ms MI interval 127 ms AH 76 and HV 41 ms Atrial pacing performed from the high right atrium and the coronary sinus Transseptal catheterization performed RA pressure 18/2/9 LA pressure 18/2/12 Transseptal catheterization performed with standard sheath. The cryoablation sheath was then placed with an over the wire exchange without any acute complications. All 4 pulmonary veins were isolated in the following sequence: Left superior followed by left inferior followed by right superior followed by right inferior The cryo-ablation balloon was placed at the os of each vein 1.5 mL of IV dye was injected to confirm an occluded vein Goal during cryoablation was to achieve complete occlusion of the pulmonary vein, achieve -30 degrees C at 30 seconds and achieve -40 degrees C at 60 seconds and a time to effect of less than 60-90 seconds, . If not the balloon was repositioned to obtain this result After completion of Cryoblation with durations from 180-240 seconds, entrance block was confirmed with the Attain circular catheter in a roving fashion around the antrum of the pulmonary veins Phrenic nerve pacing was performed from the SVC, right innominate vein area and diaphragm voltage was monitored. Diaphragmatic contractions were also monitored manually for strength of contraction. Parameter goals for each cryo freeze Complete occlusion of the appropriate vein -30 degrees C by 30 seconds -40 degrees C by 60 seconds Minimum between minus 40-55 degrees C Thaw time greater than 10 seconds Balloon visualized by intracardiac echo The esophagus was intubated. Esophageal Temperature monitoring with a CIRCA catheter formed. Esophageal deflection for hypothermia of the esophagus below 30 degrees C Left superior pulmonary vein Complete isolation, entrance block Left inferior pulmonary vein Complete isolation, entrance block Right superior pulmonary vein, during phrenic nerve pacing Complete isolation, entrance block Right inferior pulmonary vein, during phrenic nerve pacing Complete isolation, entrance block At the end of the procedure the Achieve catheter was once again used to check for entrance block Phrenic nerve stimulation was performed to confirm diaphragmatic stimulation the end of the procedure Cine fluoroscopy was performed at the very end of the procedure to confirm movement of both diaphragms with inspiration and expiration Burst stimulation from the high right atrium on and off Isuprel Burst stimulation from the coronary sinus on and off Isuprel Extra stimulation from the high right atrium, single access to my Extra stimulation from the coronary sinus, double extra stimuli No inducible atrial tachycardia or atrial fibrillation after successful PVI At the end of the procedure the patient was extubated Heparin was reversed Venous sheaths were removed and hemostasis assured Procedures performed (PVI - CRYO Ablation) Diagnostic EP study CS pacing and recording Left and right transseptal catheterization Catheter the mapping of the tachycardia (NOT 3D mapping) Intracardiac echocardiography Pulmonary vein isolation with transseptal and comprehensive EPS, [id number] Drug Infusion [id number]
--- NOTE | 2020-02-11 17:28 | P.PRLE ---
RE: MineshBertrand Dear Shelia Mr. Edge has a paroxysmal atrial fibrillation despite flecainide, noted on the loop monitor He underwent successful pulmonary vein isolation cryoablation Thereafter he had no further inducible atrial fibrillation or atrial tachycardia despite a fairly vigorous atrial stimulation protocol At this time I will continue his current medications including anticoagulation and was seen again in about a week's time to check his groins Thank you for entrusting me with the care of the patient Warm regards Sincerely Terry Rosas
[2020-02-11 18:24] VITALS: RESP 16
[2020-02-11] MEDS: METOPROLOL TARTRATE 25 MG TAB PO SCH (20:31)
[2020-02-11] MEDS: FLECAINIDE 50 MG TAB PO SCH (20:31)
[2020-02-11] MEDS: DABIGATRAN 150 MG CAP PO SCH (20:31)
--- NOTE | 2020-02-12 07:45 | P.DS ---
Providers Attending physician: Terry Rosas Primary care [facility] Course: Patient is doing well. He is resting comfortably in bed. No sore throat no chest discomfort no dizziness lightheadedness. He did get up into the chest and to the bathroom No orthopnea looks comfortable He is afebrile 98F blood pressure 111/63 mmHg pulse ox 97% normal respirations Breath sounds are clear no rhonchi no crackles Normal heart sounds normal S1 normal S2 no murmurs or gallops or rub Abdomen soft Extremity is warm no edema Impression 64-year-old male with Paroxysmal atrial fibrillation, refractory to flecainide Episodes documented on the loop monitor Neurocardiogenic syncope He does not have a lidocaine ALLERGY Hypertension KWADWO VASC score is 1 Status post PVI, complete isolation of the pulmonary veins No inducible atrial fibrillation or atrial tachycardia following PVI Plan Continue flecainide for 6 weeks then stop Continue ELIQUIS for 3 months then stop Continue antihypertensive therapy Discharge home if hemodynamically stable and groins healing well Follow-up with Dr. Rosas in 1-2 weeks Plan - Discharge Summary Discharge Rx Participant: Yes New Discharge Prescriptions: No Action Metoprolol Tartrate [Lopressor] 25 mg PO BID amLODIPine [Norvasc] 5 mg PO DAILY Hydrochlorothiazide [Hydrodiuril] 25 mg PO DAILY Flecainide [Tambocor] 50 mg PO Q12HR Albuterol Sulfate [Proair Hfa] 1 - 2 puff INHALATION DIRECTED PRN PRN Reason: Shortness Of Breath Dabigatran [Pradaxa] 150 mg PO BID 90 Days capsule Discharge Medication List Metoprolol Tartrate [Lopressor] 25 mg PO BID 10/25/14 [History] Hydrochlorothiazide [Hydrodiuril] 25 mg PO DAILY 08/22/19 [History] amLODIPine [Norvasc] 5 mg PO DAILY 08/22/19 [History] Albuterol Sulfate [Proair Hfa] 1 - 2 puff INHALATION DIRECTED PRN 12/15/19 [History] Flecainide [Tambocor] 50 mg PO Q12HR 12/15/19 [History] Dabigatran [Pradaxa] 150 mg PO BID 90 Days capsule 12/18/19 [Rx] Follow up Appointment(s)/Referral(s): Terry Rosas MD [STAFF PHYSICIAN] - 2 Weeks (Follow-up with Dr. Rosas/Laura Granados/Anya Vital Discharge home after suture removal this morning Discharge by 3 PM if stable) Activity/Diet/Wound Care/Special Instructions: Post EP study - Ablation instructions 1. Keep access sites dry for 2 days. 2. No heavy lifting or straining for 2 days. 3. Avoid bending the hips repeatedly for 2 days. 4. You may go up and down stairs slowly Call if the following is noted 1. Bleeding, increasing swelling or pain at the access sites. 2. Increasing chest discomfort, especially upon taking a deep breath. 3. Increasing shortness of breath, at rest or with exertion. 4. Undue cough / phlegm 5. Difficulty or pain while swallowing. 6. Pain or change in color in the extremities. 7. Fever, chills, rigors. 8. Increasing headache or neurologic symptoms. 9. Dizziness, fainting, palpitations No changes in medications Continue Pradaxa Continue all other cardiac medications Follow-up with Follow-up with Dr. Rosas/Laura Granados/Anya Vital in 1-2 weeks Discharge Disposition: HOME SELF-CARE
[2020-02-12 08:12] VITALS: BP 107/65; PULSE 76; TEMP 98.1
[2020-02-12] MEDS ORDERED: amLODIPine 5 MG TAB PO SCH (09:00)
[2020-02-12] MEDS ORDERED: hydroCHLOROthiazide 25 MG TAB PO SCH (09:00)
[2020-02-12] MEDS: METOPROLOL TARTRATE 25 MG TAB PO SCH (09:06)
[2020-02-12] MEDS: FLECAINIDE 50 MG TAB PO SCH (09:29)
[2020-02-12] MEDS: DABIGATRAN 150 MG CAP PO SCH (09:29)
== END 2020-02-12 14:30 | disposition home or self-care (01) ==
LOC: CATHEP 13:35 → 3NCARDOBS 17:25 → CATHEP 02-12 14:30
PROVIDERS: ATTEND Internal Medicine Clinical Cardiac Electrophysiology
DX: I48.0 Paroxysmal atrial fibrillation (principal); I47.1 Supraventricular tachycardia; I10 Essential (primary) hypertension; J44.9 Chronic obstructive pulmonary disease, unspecified; E78.00 Pure hypercholesterolemia, unspecified; F17.210 Nicotine dependence, cigarettes, uncomplicated; Z79.01 Long term (current) use of anticoagulants; Z79.82 Long term (current) use of aspirin; Z79.899 Other long term (current) drug therapy; Z90.49 Acquired absence of other specified parts of digestive tract; Z98.890 Other specified postprocedural states; Z88.4 Allergy status to anesthetic agent; Z88.8 Allergy status to other drugs, medicaments and biological substances
CPT/HCPCS: 85347; 93623; 93662; 93609; 93656; C1769 ×5; C1894 ×2; C1730 ×2; C1893; C1733; C1766; J2250; J0330; J2720; J1644 ×2; J2001; J3010; J0131; J2370; J2704; Q9967

== ENCOUNTER → 2021-10-28 | Outpatient (CLI) | payer BC ==
[2021-10-28 12:03] LABS: ALT 23 U/L (10-49); AST 28 U/L (14-35); African American GFR (CKD) 88.6 (60.0-200.0); Albumin 4.2 g/dL (3.8-4.9); Albumin/Globulin Ratio 1.37 (1.60-3.17); Alkaline Phosphatase 88 U/L (41-126); Calcium 9.6 mg/dL (8.7-10.3); Carbon Dioxide 27.2 mmol/L (20.0-27.5); Chloride 102 mmol/L (96-109); Chol/HDL Ratio 5.03 Ratio; Globulin 3.1 g/dL (1.6-3.3); Glucose 99 mg/dL (70-110); LDL Cholesterol,Calculated 141.9 mg/dL (0.0-131.0); Non-African American GFR(CKD) 76.4 (60.0-200.0); Sodium 140 mmol/L (135-145); Total Protein 7.3 g/dL (6.2-8.2); VLDL Calculation 17.52 mg/dL (5.00-40.00)
== END | disposition home or self-care (01) ==
LOC: LABWHC1 08:03
PROVIDERS: ATTEND Internal Medicine
DX: I10 Essential (primary) hypertension (principal)
CPT/HCPCS: 36415; 80053; 80061

== ENCOUNTER → 2021-11-21 | Outpatient (CLI) | payer BC ==
--- NOTE | 2021-11-21 20:01 | CTL ---
EXAMINATION TYPE: CT Low Dose Lung DATE OF EXAM ORDERED: 11/21/2021 HISTORY: Lung cancer screening CT DLP: 103.[address] CTDI: 2.50 mGy Automated exposure control for dose reduction was used. SCREENING VISIT: Initial at this institution. COMPARISON: None TECHNIQUE: Low dose computed tomography scan was performed through the chest at 1 mm thick sections a nd reconstructed images in multiple planes at 1 mm and [address] DIAGNOSTIC QUALITY: Satisfactory FINDINGS: LUNG NODULES: None. LUNGS: COPD: Severity: None Fibrosis: Severity: None Lymph nodes: None Other findings: Ground glass opacities seen most pronounced in the lung bases involving the right mid dle lobe and bilateral lower lobes. Represent atelectasis as it extends along the diaphragm. Intrafis sural lymph node along the right major fissure best appreciated on series 4 image 177. RIGHT PLEURAL SPACE: Effusion: None Calcification: None Thickening: Apical pleural thickening/scarring superimposed on paraseptal emphysema. Pneumothorax: None LEFT PLEURAL SPACE: Effusion: None Calcification: None Thickening: Apical pleural thickening/scarring superimposed on paraseptal emphysema. Pneumothorax: None HEART: Heart Size: Normal Coronary Calcification: Mild scattered atherosclerosis. Pericardial Effusion: None OTHER FINDINGS: Upper abdomen: None Bony thorax: No evidence for acute fracture. Multilevel disc degeneration changes throughout the spin e. Supraclavicular region: None Other: A loop recorder is present on the left anterior chest wall. IMPRESSION: CT LUNG RAD AND CT CHEST RECOMMENDATION: Lung-Rad 1 Negative: Continue annual screening with LDCT in 12 months. S Modifier (other clinically significant findings): None
== END | disposition home or self-care (01) ==
LOC: RADCTMAIN 14:48
PROVIDERS: ATTEND Internal Medicine
DX: Z12.2 Encounter for screening for malignant neoplasm of respiratory organs (principal); F17.200 Nicotine dependence, unspecified, uncomplicated
CPT/HCPCS: 71271

== ENCOUNTER → 2022-08-17 | Outpatient (CLI) | payer BC ==
--- NOTE | 2022-08-20 10:05 | US ---
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 Pt states right calf pain when walking approx 100 ft. Pt states pain goes away at rest History of: Smoker: Yes Hypertension: Yes Diabetic: No Hyperlipidemia: Yes TIA/CVA: No Previous Vascular Surgery: No CAD: No [place]: No Vascular Ulcers: No Claudication: Right Gangrene: No Doppler Waveforms: Right: Monophasic Left: Predominantly biphasic Right Brachial Pressure: 125 Left Brachial Pressure: 131 Ankle-Brachial Indices: Right: 0.68 Left: 1.0 Toe Brachial Indices: Right: 0.34 Left: 0.62 IMPRESSION: Diminished right sided EDWIN and TBI consistent with at least moderate peripheral arterial disease in the right lower extremity and foot. Further workup and follow-up is advised.
== END | disposition home or self-care (01) ==
LOC: RADUSWWP 13:18
PROVIDERS: ATTEND Podiatrist
DX: I70.211 Atherosclerosis of native arteries of extremities with intermittent claudication, right leg (principal); E78.5 Hyperlipidemia, unspecified; I10 Essential (primary) hypertension; Z87.891 Personal history of nicotine dependence
CPT/HCPCS: 93923

== ENCOUNTER → 2022-09-01 | Outpatient (CLI) | payer BC ==
[2022-09-01 11:14] LABS: Basophils # (A) 0.06 X 10*3/uL (0.00-0.10); Basophils % (A) 0.8 %; Eosinophils # (A) 0.17 X 10*3/uL (0.04-0.35); Eosinophils % (A) 2.3 %; HCT 44.5 % (39.6-50.0); HGB 14.6 g/dL (13.0-17.0); Immature Grans, Automated 0.3 %; Lymphocytes # (A) 1.56 X 10*3/uL (0.90-5.00); Lymphocytes % (A) 21.4 %; MCH 29.9 pg (27.0-32.0); MCHC 32.8 g/dL (32.0-37.0); Mean Platelet Volume 9.3 fL (9.5-12.2); Monocytes # (A) 0.76 X 10*3/uL (0.20-1.00); Monocytes % (A) 10.4 %; NRBC Per 100 WBC 0 /100 WBCS (0.0-0.0); Neutrophils # (A) 4.71 X 10*3/uL (1.80-7.70); Neutrophils % (A) 64.8 %; Platelet Count 216 X 10*3/uL (140-440); RBC 4.89 X 10*6/uL (4.40-5.60); RDW 12.8 % (11.5-14.5); WBC 7.28 X 10*3/uL (4.50-10.00)
[2022-09-01 11:28] LABS: ALT 20 U/L (10-49); AST 25 U/L (14-35); African American GFR (CKD) 92.6 (60.0-200.0); Albumin 4.3 g/dL (3.8-4.9); Albumin/Globulin Ratio 1.59 (1.60-3.17); Alkaline Phosphatase 80 U/L (41-126); BUN/Creat Ratio 21.65 Ratio (12.00-20.00); Blood Urea Nitrogen 21.5 mg/dL (9.0-27.0); Calcium 9.7 mg/dL (8.7-10.3); Carbon Dioxide 29.8 mmol/L (20.0-27.5); Chloride 103 mmol/L (96-109); Chol/HDL Ratio 4.46 Ratio; Globulin 2.7 g/dL (1.6-3.3); Glucose 106 mg/dL (70-110); LDL Cholesterol,Calculated 109.7 mg/dL (0.0-131.0); Non-African American GFR(CKD) 79.9 (60.0-200.0); Sodium 143 mmol/L (135-145); Total Protein 6.9 g/dL (6.2-8.2); VLDL Calculation 17.54 mg/dL (5.00-40.00)
== END | disposition home or self-care (01) ==
LOC: LABWHC1 08:21
PROVIDERS: ATTEND Internal Medicine
DX: Z12.5 Encounter for screening for malignant neoplasm of prostate (principal); Z11.59 Encounter for screening for other viral diseases; I10 Essential (primary) hypertension
CPT/HCPCS: 36415; 80053; 80061; 84153; 84443; 85025; 86803

== ENCOUNTER → 2022-11-15 | Outpatient (CLI) | payer BC ==
[2022-11-15 15:53] LABS: African American GFR (CKD) 101.3 (60.0-200.0); Anion Gap 10.3 mmol/L (10.00-18.00); Carbon Dioxide 27.9 mmol/L (20.0-27.5); Non-African American GFR(CKD) 87.4 (60.0-200.0); Potassium 3.7 mmol/L (3.5-5.5)
[2022-11-15 16:13] LABS: HCT 42.9 % (39.6-50.0); MCH 30.3 pg (27.0-32.0); MCHC 32.6 g/dL (32.0-37.0); MCV 92.9 fL (80.0-97.0); Mean Platelet Volume 9.5 fL (9.5-12.2); NRBC Per 100 WBC 0 /100 WBCS (0.0-0.0); Platelet Count 251 X 10*3/uL (140-440); RBC 4.62 X 10*6/uL (4.40-5.60); RDW 13.5 % (11.5-14.5); WBC 7.69 X 10*3/uL (4.50-10.00)
== END | disposition home or self-care (01) ==
LOC: LABPAT 08:37
PROVIDERS: ATTEND Internal Medicine Interventional Cardiology
DX: Z01.812 Encounter for preprocedural laboratory examination (principal); I70.213 Atherosclerosis of native arteries of extremities with intermittent claudication, bilateral legs
CPT/HCPCS: 36415; 80051; 82565; 84520; 85027

== ENCOUNTER 2022-11-19 09:10 | Day surgery (SDC) | payer BC, MEDICARE ==
[~2022-11-19 09:10] MED LIST changes: -LACTATED RINGERS 1,000 ML IV SCH; -SODIUM CHLORIDE 0.9% 1,000 ML IV SCH; +SODIUM CHLORIDE 0.9% 1,000 ML in EMPTY BAG 1 BAG IV ONE
[2022-11-19] MEDS ORDERED: ASPIRIN 325 MG TAB PO STA (09:19)
[2022-11-19 09:26] VITALS: RESP 18; TEMP 97.5
[2022-11-19] MEDS ORDERED: CHLOROPROCAINE 3% 30 MG/ML 20 ML VIAL CAUDALBLCK PRN (10:06)
[2022-11-19] MEDS ORDERED: MIDAZOLAM 2 MG/2 ML VIAL IV ONE (10:36)
[2022-11-19] MEDS ORDERED: CHLOROPROCAINE 3% 30 MG/ML 20 ML VIAL SQ ONE (10:37)
[2022-11-19] MEDS ORDERED: IOPAMIDOL-250 100ML BTL INTRAARTER ONE (10:45)
[2022-11-19] MEDS ORDERED: NALOXONE 0.4 MG/ML 1 ML VIAL IVP PRN (10:47)
--- NOTE | 2022-11-19 10:52 | P.PCN ---
Date of Procedure: 11/19/22 Operative Findings: AN ABDOMINAL AORTOGRAM AND BILATERAL LOWER EXTREMITIES RUNOFF PERFORMING PHYSICIAN: Gamaliel Boyd MD PROCEDURE PERFORMED: 1. An abdominal aortogram 2. Bilateral lower extremities runoff 3. Ultrasound-guided access of the right common femoral artery INDICATION: Right lower extremities intermittent claudication in this gentleman who underwent an arterial duplex study showed occluded right SFA COMPLICATION: None LEVEL OF SEDATION: Moderate was sedation length of 10 minutes APPROACH: Right common femoral artery PROCEDURE DESCRIPTION: After obtaining informed consent and explaining the procedure benefits, risks, and complications, the patient was brought to the cardiac cardiac cath lab radiology technologist. The right groin was prepped and draped in sterile fashion. The right common femoral artery was cannulated using micropuncture technique, under ultrasound guidance. A micropuncture wire was advanced, and the micropuncture sheath was advanced over the wire, then the micropuncture sheath was exchanged over an 0.35 wire into a 5-Frisian sheath dilator assembly then the wire and dilator were removed and sheath was flushed. We did an abdominal aortogram and bilateral lower extremities runoff using 5- Frisian pigtail catheter using a power injection. The catheter was initially placed at the level of the renal arteries, and it was pulled into above the bifurcation of the aorta into right and left common iliac arteries. The procedure was completed and there was no complications. SELECTIVE PERIPHERAL ANGIOGRAM: The abdominal aorta: Is angiographically normal The common iliac arteries: Right common iliac artery and left common iliac arteries appeared to be angiographically normal The external iliac arteries: The right external iliac artery appeared to have intermediate lesion The internal iliac arteries: Both internal iliacs arteries are patent The common femoral arteries: Are angiographically normal Superficial femoral arteries: The right SFA is occluded Popliteal arteries: Both popliteals are patent Below the knees: 3 vessels run off below the knee bilaterally CONCLUSION: Occluded right SFA 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
[2022-11-19] MEDS ORDERED: SODIUM CHLORIDE 0.9% 1,000 ML in EMPTY BAG 1 BAG IV SCH (11:00)
--- NOTE | 2022-11-19 11:11 | IR ---
EXAMINATION TYPE: IR angio abdominal w serial HISTORY: Fluoroscopy time Impression: 1. Fluoroscopy support provided to the referring physician.
[2022-11-19 15:43] VITALS: BP 109/67; PULSE 72
== END 2022-11-19 16:05 | disposition home or self-care (01) ==
LOC: CATHCVL 09:10
PROVIDERS: ATTEND Internal Medicine Interventional Cardiology
DX: I73.9 Peripheral vascular disease, unspecified (principal); I10 Essential (primary) hypertension; F17.210 Nicotine dependence, cigarettes, uncomplicated; Z79.899 Other long term (current) drug therapy
CPT/HCPCS: 36200; 75625; 75716; 76937; C1769 ×3; C1894; J2250; Q9966; J2401

== ENCOUNTER 2022-12-12 10:22 | Day surgery (SDC) | payer MEDICARE, BC ==
[2022-12-10 09:11] VITALS: BMI 23.3
[2022-12-12] MEDS ORDERED: ASPIRIN 81 MG ONE (10:40)
[2022-12-12 10:46] LABS: Basophils # (A) 0.1 k/uL (0-0.2); Basophils % (A) 1 %; Eosinophils # (A) 0.2 k/uL (0-0.7); Eosinophils % (A) 3 %; HCT 44.9 % (39.0-53.0); HGB 14.5 gm/dL (13.0-17.5); Lymphocytes % (A) 25 %; MCH 29.5 pg (25.0-35.0); MCHC 32.4 g/dL (31.0-37.0); MCV 91.1 fL (80.0-100.0); Monocytes # (A) 0.5 k/uL (0-1.0); Monocytes % (A) 6 %; Neutrophils # (A) 4.7 k/uL (1.3-7.7); Neutrophils % (A) 61 %; Platelet Count 205 k/uL (150-450); RBC 4.92 m/uL (4.30-5.90); RDW 13.5 % (11.5-15.5); WBC 7.7 k/uL (3.8-10.6)
[2022-12-12 10:54] LABS: African American GFR (CKD) >90 (>60 ml/min/1.73 sqM); Anion Gap 8 mmol/L; Blood Urea Nitrogen 22 mg/dL (9-20); Calcium 9.5 mg/dL (8.4-10.2); Carbon Dioxide 33 mmol/L (22-30); Chloride 99 mmol/L (98-107); Glucose 102 mg/dL (74-99); Non-African American GFR(CKD) 86 (>60 ml/min/1.73 sqM); Potassium 3.7 mmol/L (3.5-5.1); Sodium 140 mmol/L (137-145)
[2022-12-12] MEDS ORDERED: MIDAZOLAM 2 MG/2 ML VIAL IV ONE (12:55)
[2022-12-12] MEDS ORDERED: LIDOCAINE 1% INJ 10MG/ML (30 ML VIAL-PF) SQ ONE (12:55)
[2022-12-12] MEDS ORDERED: HEPARIN SODIUM 1,000 UN/ML (10ML VL) IV ONE (13:00)
[2022-12-12] MEDS ORDERED: fentaNYL (PF) 50 MCG/ML 2 ML AMP IV ONE (13:27)
[2022-12-12] MEDS ORDERED: CLOPIDOGREL 75 MG TAB PO ONE (13:42)
[2022-12-12] MEDS ORDERED: IOPAMIDOL-250 100ML BTL INTRAARTER ONE (13:48)
--- NOTE | 2022-12-12 14:21 | IR ---
EXAMINATION TYPE: IR mining captain femoral popliteal DATE OF EXAM: 12/12/2022 COMPARISON: NONE HISTORY: Fluoroscopy time. Fluoroscopy was provided to the referring clinician.
[2022-12-12] MEDS: HYDROmorphone 0.5 MG/0.5 ML SYRINGE IVP PRN (14:30)
[2022-12-12] MEDS ORDERED: SODIUM CHLORIDE 0.9% 1,000 ML IV SCH (15:00)
--- NOTE | 2022-12-12 18:44 | P.PCN ---
Date of Procedure: 12/12/22 Operative Findings: PERCUTANEOUS PERIPHERAL ARTERIAL INTERVENTION Performing physician Gamaliel Boyd M.D. Procedure performed 1. Successful balloon angioplasty of the right SFA using 6.0 x 200 mm drug- coated balloon with an excellent angiographic results 2. An adjunctive you off atherectomy and intravascular ultrasound 3. Right lower extremity angiogram 4. Left common femoral artery angiogram 5. Ultrasound guided access of the left common femoral artery Indication The patient is a 67-year-old gentleman who sees Dr. Rosas regularly with a past medical history significant for hypertension and dyslipidemia was experiencing right lower extremity discomfort concerning for intermittent claudication. He underwent an angiogram and that showed intermediate disease involving the right external iliac artery and occluded right SFA. He was brought today for an intervention Approach Left common femoral artery Complications None Level of sedation Moderate with a sedation time of 40 minutes Procedure description After obtaining an informed consent the patient was brought to the cardiac greenskeeper laborer. The left common femoral artery was cannulated using micropuncture technique under ultrasound guidance, the micropuncture wire passed easily then I placed a 6-Tajik sheath 70 cm at the left common femoral artery. Subsequently anticoagulation was initiated using heparin with continuous ACT monitoring. After that I did engage the right common iliac artery using 5-Tajik rim catheter. Subsequently an 035 stiff Glidewire was advanced to the right SFA. Then the long sheath was advanced over the wire and the catheter to the right c ommon femoral artery. The right lower extremity angiogram was performed and showed occluded right SFA in the midportion. After that I did cross the chronic total occlusion of the right SFA using 014 wire. I did intravascular ultrasound and touch with a diameter around 6 mm. I did atherectomy using the Hawk device. Then I did balloon angioplasty initiated using 6 mm regular balloon and subsequ ently 6 mm drug-coated balloon. Final angiogram was performed and showed an excellent angiographic results and the procedure was completed was no complication. After that I did exchange my long sheath into short sheath using 035 stiff Glidewire then I did selective left common femoral artery angiogram. The procedure was completed was no complication. Postprocedure management 1. Dual antiplatelet therapy and aggressive cholesterol control 3. Assess the need to intervene on the right iliac artery 4. Follow-up with the patient
[2022-12-12] MEDS: METOPROLOL TARTRATE 25 MG TAB PO SCH (20:01)
[2022-12-12] MEDS ORDERED: PRAVASTATIN SODIUM 20 MG TAB PO SCH (21:00)
[2022-12-12] MEDS ORDERED: ASPIRIN 81 MG PO SCH (21:00)
[2022-12-13] MEDS: HYDROmorphone 0.5 MG/0.5 ML SYRINGE IVP PRN (06:41)
--- NOTE | 2022-12-13 07:27 | P.DS ---
Providers Attending physician: Gamaliel Boyd Primary care physician: Darren Dolan MD Hospital Course: The patient is a pleasant 67-year-old gentleman who underwent yesterday successful INDUSTRIAL TWISTING MACHINE OPERATOR of the right SFA with a good angiographic results and with no complication. He was seen and evaluated this morning. He is asymptomatic and hemodynamically stable. He is going to be discharged home on dual antiplatelet therapy and he'll follow-up with in a week. He is to have an intermediate to severe lesion involving the right iliac artery to be addressed. Plan - Discharge Summary Discharge Rx Participant: No New Discharge Prescriptions: New Clopidogrel [Plavix] 75 mg PO DAILY #90 tablet Continue Metoprolol Tartrate [Lopressor] 25 mg PO BID amLODIPine [Norvasc] 5 mg PO DAILY hydroCHLOROthiazide [Hydrodiuril] 25 mg PO DAILY Albuterol Sulfate [Proair Hfa] 1 - 2 puff INHALATION DIRECTED PRN PRN Reason: Shortness Of Breath Aspirin [Adult Low Dose Aspirin EC] 81 mg PO HS Pravastatin Sodium [Pravachol] 1 tab PO DAILY Discontinued Aspirin [[place] Aspirin EC] 81 mg PO HS Discharge Medication List Metoprolol Tartrate [Lopressor] 25 mg PO BID 10/25/14 [History] amLODIPine [Norvasc] 5 mg PO DAILY 08/22/19 [History] hydroCHLOROthiazide [Hydrodiuril] 25 mg PO DAILY 08/22/19 [History] Albuterol Sulfate [Proair Hfa] 1 - 2 puff INHALATION DIRECTED PRN 12/15/19 [History] Aspirin [Adult Low Dose Aspirin EC] 81 mg PO HS 11/14/22 [History] Pravastatin Sodium [Pravachol] 1 tab PO DAILY 11/14/22 [History] Clopidogrel [Plavix] 75 mg PO DAILY #90 tablet 12/13/22 [Rx] Follow up Appointment(s)/Referral(s): Terry Rosas MD [STAFF PHYSICIAN] - 1 Week (APPOINTMENT MADE ON November @ 8:30AM )
[2022-12-13 08:15] LABS: Basophils % (A) 1 %; Eosinophils # (A) 0.2 k/uL (0-0.7); Eosinophils % (A) 3 %; HCT 41.2 % (39.0-53.0); HGB 13.8 gm/dL (13.0-17.5); Lymphocytes # (A) 1.5 k/uL (1.0-4.8); Lymphocytes % (A) 17 %; MCH 30.5 pg (25.0-35.0); MCHC 33.6 g/dL (31.0-37.0); MCV 90.8 fL (80.0-100.0); Mean Platelet Volume 6.9; Monocytes # (A) 0.6 k/uL (0-1.0); Monocytes % (A) 6 %; Neutrophils # (A) 6.3 k/uL (1.3-7.7); Neutrophils % (A) 72 %; Platelet Count 187 k/uL (150-450); RBC 4.54 m/uL (4.30-5.90); RDW 13.1 % (11.5-15.5); WBC 8.8 k/uL (3.8-10.6)
[2022-12-13] MEDS: METOPROLOL TARTRATE 25 MG TAB PO SCH (08:24)
[2022-12-13 08:36] VITALS: BP 128/72; PULSE 75; RESP 18; TEMP 98.4
[2022-12-13] MEDS ORDERED: amLODIPine 5 MG TAB PO SCH (09:00)
[2022-12-13] MEDS ORDERED: CLOPIDOGREL 75 MG TAB PO SCH (09:00)
[2022-12-13] MEDS ORDERED: hydroCHLOROthiazide 25 MG TAB PO SCH (09:00)
== END 2022-12-13 12:25 | disposition home or self-care (01) ==
LOC: CATHCVL 10:22 → 6NMEDSUR 13:59 → CATHCVL 12-13 12:25
PROVIDERS: ATTEND Internal Medicine Interventional Cardiology
DX: I70.211 Atherosclerosis of native arteries of extremities with intermittent claudication, right leg (principal); I70.92 Chronic total occlusion of artery of the extremities; I10 Essential (primary) hypertension; E78.5 Hyperlipidemia, unspecified; F17.210 Nicotine dependence, cigarettes, uncomplicated; Z79.02 Long term (current) use of antithrombotics/antiplatelets; Z79.82 Long term (current) use of aspirin; Z79.899 Other long term (current) drug therapy
CPT/HCPCS: 37225; 37252; 80048; 85025 ×2; 99152; 99153 ×2; C1894 ×2; C1769 ×4; C1725; C1714; C1753; C2623; J2250; J2001; J3010; J1644; J1170 ×2; Q9966

== ENCOUNTER 2022-12-17 02:20 | Emergency (ER) | payer MEDICARE, BC ==
[2022-12-17 02:26] VITALS: TEMP 98.3
[2022-12-17 03:53] LABS: Basophils % (A) 0 %; Eosinophils # (A) 0.3 k/uL (0-0.7); Eosinophils % (A) 3 %; HCT 40.1 % (39.0-53.0); HGB 13.5 gm/dL (13.0-17.5); Lymphocytes # (A) 1.1 k/uL (1.0-4.8); Lymphocytes % (A) 12 %; MCH 30.7 pg (25.0-35.0); MCHC 33.8 g/dL (31.0-37.0); MCV 90.8 fL (80.0-100.0); Mean Platelet Volume 7.7; Monocytes # (A) 0.7 k/uL (0-1.0); Monocytes % (A) 7 %; Neutrophils # (A) 7.5 k/uL (1.3-7.7); Neutrophils % (A) 77 %; Platelet Count 190 k/uL (150-450); RBC 4.42 m/uL (4.30-5.90); RDW 13.1 % (11.5-15.5); WBC 9.8 k/uL (3.8-10.6)
[2022-12-17 04:01] LABS: Partial Thromboplastin Time 25.8 sec (22.0-30.0); Prothrombin Time 10.1 sec (9.0-12.0)
[2022-12-17 04:33] LABS: ALT 34 U/L (4-49); AST 54 U/L (17-59); African American GFR (CKD) >90 (>60 ml/min/1.73 sqM); Alkaline Phosphatase 90 U/L (38-126); Anion Gap 9 mmol/L; Blood Urea Nitrogen 24 mg/dL (9-20); Calcium 9.2 mg/dL (8.4-10.2); Carbon Dioxide 30 mmol/L (22-30); Chloride 100 mmol/L (98-107); Glucose 119 mg/dL (74-99); Non-African American GFR(CKD) 85 (>60 ml/min/1.73 sqM); Potassium 3.6 mmol/L (3.5-5.1); Sodium 139 mmol/L (137-145); Total Bilirubin 0.5 mg/dL (0.2-1.3); Total Protein 7.1 g/dL (6.3-8.2)
[2022-12-17 06:37] VITALS: PULSE 88
[2022-12-17] MEDS ORDERED: ACETAMINOPHEN TAB 325 MG TAB PO STA (06:37)
--- NOTE | 2022-12-17 07:36 | US ---
EXAMINATION TYPE: US lower ext pseudo artery LT DATE OF EXAM: 12/17/2022 COMPARISON: NONE CLINICAL INDICATION: Male, 67 years old with history of post op, leg pain; access through left groin to clean out right femoral artery 5 days ago, bruising and tenderness to groin today, nothing palpabl e EXAM PERFORMED: Grayscale and color Doppler duplex imaging performed of the groin, assess for pseudoa neurysm. SIDE PERFORMED: Left Color and Waveform Doppler performed to assess for the presence of pseudoaneurysm; Is there ultrasound evidence of a pseudoaneurysm: no Is there evidence of AV shunting: no Is there a fluid collection present: no Checker Loader notes: Soft tissue scan did not produce any abnormality to account for symptoms IMPRESSION: No appreciable focal hematoma or pseudoaneurysm in the left groin by ultrasound.
--- NOTE | 2022-12-17 07:37 | US ---
EXAMINATION TYPE: US venous doppler duplex LE LT DATE OF EXAM: 12/17/2022 4:33 AM COMPARISON: NONE CLINICAL INDICATION: Male, 67 years old with history of post op, leg pain; patient had procedure 5 da ys ago to clean out right femoral artery through accessing left groin, pain in groin with bruising, p ain in left knee also, no h/o DVT, no swelling SIDE PERFORMED: Left TECHNIQUE: The lower extremity deep venous system is examined utilizing real time linear array sonog landon with graded compression, doppler sonography and color-flow sonography. VESSELS IMAGED: Common Femoral Vein Deep Femoral Vein Greater Saphenous Vein * Femoral Vein Popliteal Vein Small Saphenous Vein * Proximal Calf Veins Peroneal veins Posterior tibial veins (* superficial vessels) Left Leg: Negative for DVT IMPRESSION: No evidence for DVT within the left lower extremity.
[2022-12-17 08:05] VITALS: BP 129/72; RESP 18
--- NOTE | 2022-12-17 09:09 | ED ---
Extremity Problem HPI - General Chief complaint: Extremity Problem,Nontraumatic Stated complaint: Post-Op Pain and bruising, Blood Clot in left knee Time Seen by Provider: 12/17/22 02:30 Source: patient Mode of arrival: wheelchair Limitations: no limitations - History of Present Illness Initial comments: 67-year-old male who comes to the emergency department for left groin and left knee pain. Patient was recently hospitalized and had surgery by Dr. Ramsey on the . Patient had balloon angioplasty of the right leg. He was access in the left groin. Reports that he did have some swelling and ecchymosis after the procedure. He has noted that since hospital discharge the swelling has moved into his penile shaft. He also began having some palpable pain on the inside of his left knee. Patient concern for DVT and therefore presents for evaluation. He denies any lightheadedness or shortness of breath. No history of DVT. Denies numbness or tingling into his foot. No color change. No other alleviating, precipitating or modifying factors - Related Data Home Medications Medication Instructions Recorded Confirmed Metoprolol Tartrate [Lopressor] 25 mg PO BID 10/25/14 12/12/22 amLODIPine [Norvasc] 5 mg PO DAILY 08/22/19 12/12/22 hydroCHLOROthiazide [Hydrodiuril] 25 mg PO DAILY 08/22/19 12/12/22 Albuterol Sulfate [Proair Hfa] 1 - 2 puff INHALATION DIRECTED 12/15/19 12/12/22 PRN Aspirin [Adult Low Dose Aspirin EC] 81 mg PO HS 11/14/22 12/12/22 Pravastatin Sodium [Pravachol] 1 tab PO DAILY 11/14/22 12/12/22 Previous Rx's Medication Instructions Recorded Clopidogrel [Plavix] 75 mg PO DAILY #90 tablet 12/13/22 Allergies Allergy/AdvReac Type Severity Reaction Status Date / Time losartan Allergy Rash/Hives Verified 12/17/22 02:21 lidocaine HCl AdvReac "blacked Verified 12/17/22 02:21 [From Xylocaine] out" Review of Systems ROS Statement: Those systems with pertinent positive or pertinent negative responses have been documented in the HPI. ROS Other: All systems not noted in ROS Statement are negative. Past Medical History Past Medical History: Atrial Fibrillation, COPD, Hyperlipidemia, Hypertension, Vascular Disorder Additional Past Medical History / Comment(s): , spontaneous pneumothorax, History of Any Multi-Drug Resistant Organisms: None Reported Past Surgical History: Appendectomy, Cardiac Ablation, EPS, Hernia Repair, Orthopedic Surgery Additional Past Surgical History / Comment(s): umbilical hernia, ORIF right ankle, ABD AORTAGRAM WITH BLE RUN OFF, COLONOSCOPY, Past Anesthesia/Blood Transfusion Reactions: No Reported Reaction Past Psychological History: No Psychological Hx Reported Smoking Status: Current every day smoker Past Alcohol Use History: None Reported Past Drug Use History: None Reported - Past Family History Sister(s) Family Medical History: Cancer General Exam Limitations: no limitations General appearance: alert, in no apparent distress Head exam: Present: atraumatic, normocephalic, normal inspection Eye exam: Present: normal appearance, PERRL, EOMI. Absent: scleral icterus, conjunctival injection, periorbital swelling ENT exam: Present: normal exam, mucous membranes moist Neck exam: Present: normal inspection. Absent: tenderness, meningismus, lymphadenopathy Respiratory exam: Present: normal lung sounds bilaterally. Absent: respiratory distress, wheezes, rales, rhonchi, stridor Cardiovascular Exam: Present: regular rate, normal rhythm, normal heart sounds. Absent: systolic murmur, diastolic murmur, rubs, gallop, clicks GI/Abdominal exam: Present: soft, normal bowel sounds. Absent: distended, tenderness, guarding, rebound, rigid Extremities exam: Present: tenderness (to palpation of the medial knee on the left. No obvious swelling or ecchymosis. pain is localized. no joint effusion. DP and PT pulses found using doppler ultrasoun. <2 second cap refill), normal capillary refill. Absent: pedal edema, joint swelling, calf tenderness Back exam: Present: other (ecchymosis over left groin extending into penile shaft. Bleeding is dark purple and appears subacute) Neurological exam: Present: alert, oriented X3, CN II-XII intact Psychiatric exam: Present: normal affect, normal mood Skin exam: Present: warm, dry, intact, normal color. Absent: rash Course Vital Signs 12/17/22 12/17/22 12/17/22 02:21 06:35 08:03 Temperature 98.3 F Pulse Rate 95 88 88 Respiratory 18 16 18 Rate Blood Pressure 136/75 121/69 129/72 O2 Sat by Pulse 98 98 98 Oximetry Medical Decision Making - Medical Decision Making Was pt. sent in by a medical professional or institution (, [facility]ST[facility], RELATIONS LIAISON, urgent care, hospital, or assisted...) When possible be specific @ -No Did you speak to anyone other than the patient for history (EMS, parent, family, police, friend...)? What history was obtained from this source @ -Patients provides history Did you review nursing and triage notes (agree or disagree)? Why? @ -I reviewed and agree with nursing and triage notes Were old charts reviewed (outside hosp., previous admission, EMS record, old EKG, old radiological studies, urgent care reports/EKG's, assisted records)? Report findings @ -Old charts were reviewed - procedure note done by Dr. Boyd on the Differential Diagnosis (chest pain, altered mental status, abdominal pain women, abdominal pain men, vaginal bleeding, weakness, fever, dyspnea, syncope, headache, dizziness, GI bleed, back pain, seizure, CVA, palpatations, mental health, musculoskeletal)? @ -hematoma, arterial occlusion, venous occlusion, pseudoanerysm EKG interpreted by me (3pts min.). @ -Not done X-rays interpreted by me (1pt min.). @ -None done CT interpreted by me (1pt min.). @ -Not done U/S interpreted by me (1pt. min.). @ -groin us and venous us left lower extremity - no acute process What testing was considered but not performed or refused? (CT, X-rays, U/S, labs)? Why? @ -None What meds were considered but not given or refused? Why? @ -None Did you discuss the management of the patient with other professionals (professionals i.e. , NÉSTOR, RELATIONS LIAISON, lab, RT, psych nurse, social and political studies professor, telecommunications technician, teacher, loan review officer, transplant case manager)? Give summary @ -Dr. Boyd who presents to the ED to evaluate the patient Was smoking cessation discussed for >3mins.? @ -No Was critical care preformed (if so, how long)? @ -No Were there social determinants of health that impacted care today? How? (Homelessness, low income, unemployed, alcoholism, drug addiction, transportation, low edu. Level, literacy, decrease access to med. care, half-way, rehab)? @ -No Was there de-escalation of care discussed even if they declined (Discuss DNR or withdrawal of care, Hospice)? DNR status @ -No What co-morbidities impacted this encounter? (DM, HTN, Smoking, COPD, CAD, Cancer, CVA, ARF, Chemo, Hep., AIDS, mental health diagnosis, sleep apnea, morbid obesity)? @ -PAD Was patient admitted / discharged? Hospital course, mention meds given and r oute, prescriptions, significant lab abnormalities, going to OR and other pertinent info. @ -Upon arrival patient was placed into room 2. History and physical exam was performed. Patient does have palpable pulses. Pulses are also found on Doppler. Ultrasound of the left leg is performed for DVT as well as the left groin. I called and spoke with Dr. Boyd in regard to the findings. Dr. Boyd feels that the patient is stable for discharge at this time after he does evaluate the patient himself. He will follow-up with Dr. Boyd in office and return for any new or worsening symptoms. He was discharged home in stable condition Undiagnosed new problem with uncertain prognosis? @ -yes Drug Therapy requiring intensive monitoring for toxicity (Heparin, Nitro, Insulin, Cardizem)? @ -No Were any procedures done? @ -No Diagnosis/symptom? @ -acute left leg/knee pain, subacute groin ecchymosis due to recent angiogram Acute, or Chronic, or Acute on Chronic? @ -acute Uncomplicated (without systemic symptoms) or Complicated (systemic symptoms)? @ -complicated Side effects of treatment? @ -No Exacerbation, Progression, or Severe Exacerbation? @ -No Poses a threat to life or bodily function? How? (Chest pain, [place], [place], pneumonia, PE, COPD, DKA, ARF, appy, cholecystitis, CVA, Diverticulitis, Homicidal, Suicidal, threat to staff... and all critical care pts) @ -No - Lab Data Result diagrams: 12/17/22 03:42 12/17/22 03:42 Lab Results 12/17/22 12/17/22 12/17/22 Range/Units 03:42 03:42 03:42 WBC 9.8 (3.8-10.6) k/uL RBC 4.42 (4.30-5.90) m/uL Hgb 13.5 (13.0-17.5) gm/dL Hct 40.1 (39.0-53.0) % MCV 90.8 (80.0-100.0) fL MCH 30.7 (25.0-35.0) pg MCHC 33.8 (31.0-37.0) g/dL RDW 13.1 (11.5-15.5) % Plt Count 190 (150-450) k/uL MPV 7.7 Neutrophils % 77 % Lymphocytes % 12 % Monocytes % 7 % Eosinophils % 3 % Basophils % 0 % Neutrophils # 7.5 (1.3-7.7) k/uL Lymphocytes # 1.1 (1.0-4.8) k/uL Monocytes # 0.7 (0-1.0) k/uL Eosinophils # 0.3 (0-0.7) k/uL Basophils # 0.0 (0-0.2) k/uL PT 10.1 (9.0-12.0) sec INR 1.0 (<1.2) APTT 25.8 (22.0-30.0) sec Sodium 139 (137-145) mmol/L Potassium 3.6 (3.5-5.1) mmol/L Chloride 100 (98-107) mmol/L Carbon Dioxide 30 (22-30) mmol/L Anion Gap 9 mmol/L BUN 24 H (9-20) mg/dL Creatinine 0.94 (0.66-1.25) mg/dL Est GFR (CKD-EPI)AfAm >90 (>60 ml/min/1.73 sqM) Est GFR (CKD-EPI)NonAf 85 (>60 ml/min/1.73 sqM) Glucose 119 H (74-99) mg/dL Calcium 9.2 (8.4-10.2) mg/dL Total Bilirubin 0.5 (0.2-1.3) mg/dL AST 54 (17-59) U/L ALT 34 (4-49) U/L Alkaline Phosphatase 90 (38-126) U/L Total Protein 7.1 (6.3-8.2) g/dL Albumin 4.0 (3.5-5.0) g/dL Disposition Clinical Impression: Left knee pain, S/P angioplasty Disposition: HOME SELF-CARE Condition: Stable Instructions (If sedation given, give patient instructions): Knee Pain (ED) Is patient prescribed a controlled substance at d/c from ED?: No Referrals: Darren Dolan MD [Primary Care Provider] - 1-2 days Gamaliel Boyd MD [STAFF PHYSICIAN] - 1-2 days Time of Disposition: 09:09
--- NOTE | 2022-12-17 11:46 | P.CRDCN ---
History of Present Illness Consult date: 12/17/22 Chief complaint: Left lower extremity discomfort History of present illness: The patient is a pleasant 67-year-old gentleman who sees Dr. Rosas regularly who was diagnosed recently was occlusive CAD documented by arterial duplex study and subsequently an angiogram which revealed occluded right SFA and intermediate lesion involving the right iliac artery. Subsequently the patient was admitted to the hospital this past Saturday and he underwent successful recanalizing chronically occluded right SFA from the left groin approach. The procedure ended with an excellent angiographic results and reduction of stenosis in the right SFA from 100% to 0% with no need for stent only with balloon angioplasty and atherectomy. The procedure was performed from the left groin. The patient was seen the following day where the left groin was tender was mild bruises. FemoStop was applied for 3 hours after and he was advised to stay overnight one more day to watch the groin but he was insisting on leaving to go home. He was discharged in stable medical condition and he was compliant with all of his medications. He presented to the emergency department because he woke up from sleep during the night complaining of left knee discomfort. He presented to the ER and there was a concern about deep venous thrombosis and for that reason he underwent further investigation including venous duplex study which showed no evidence of DVT. Also he underwent an arterial duplex study which showed patent left lower extremities arterial duplex system. The patient was seen and evaluated this morning. The left groin is bruised but there is no discrete hematoma noted. He has a grade pulse in the left groin and a great pulse in the dorsalis pedis and posterior tibial on the left side. On the right side he has also great pedal pulses. He denies any chest pain or chest discomfort or shortness of breath. From the cardiovascular standpoint of view, the patient can be discharged home to be compliant with his medications including dual antiplatelet therapy. He will be followed by Dr. Rosas Assessment Status post [employer]UT[employer] of the right SFA Left groin hematoma/bruises. The hematoma has resolved Left knee discomfort. DVT was ruled out Plan DVT of the left lower extremity has ruled out Continue the current medical regimen The patient to be seen by Dr. Rosas Past Medical History Past Medical History: Atrial Fibrillation, COPD, Hyperlipidemia, Hypertension, Vascular Disorder Additional Past Medical History / Comment(s): , spontaneous pneumothorax, History of Any Multi-Drug Resistant Organisms: None Reported Past Surgical History: Appendectomy, Cardiac Ablation, EPS, Hernia Repair, Orthopedic Surgery Additional Past Surgical History / Comment(s): umbilical hernia, ORIF right ankle, ABD AORTAGRAM WITH BLE RUN OFF, COLONOSCOPY, Past Anesthesia/Blood Transfusion Reactions: No Reported Reaction Past Psychological History: No Psychological Hx Reported Smoking Status: Current every day smoker Past Alcohol Use History: None Reported Past Drug Use History: None Reported - Past Family History Sister(s) Family Medical History: Cancer Medications and Allergies Home Medications Medication Instructions Recorded Confirmed Type Metoprolol Tartrate [Lopressor] 25 mg PO BID 10/25/14 12/12/22 History amLODIPine [Norvasc] 5 mg PO DAILY 08/22/19 12/12/22 History hydroCHLOROthiazide [Hydrodiuril] 25 mg PO DAILY 08/22/19 12/12/22 History Albuterol Sulfate [Proair Hfa] 1 - 2 puff INHALATION DIRECTED 12/15/19 12/12/22 History PRN Aspirin [Adult Low Dose Aspirin EC] 81 mg PO HS 11/14/22 12/12/22 History Pravastatin Sodium [Pravachol] 1 tab PO DAILY 11/14/22 12/12/22 History Clopidogrel [Plavix] 75 mg PO DAILY #90 tablet 12/13/22 Rx Allergies Allergy/AdvReac Type Severity Reaction Status Date / Time losartan Allergy Rash/Hives Verified 12/17/22 02:21 lidocaine HCl AdvReac "blacked Verified 12/17/22 02:21 [From Xylocaine] out" Physical Exam Vitals: Vital Signs Temp Pulse Resp BP Pulse Ox 12/17/22 08:03 88 18 129/72 98 12/17/22 06:35 88 16 121/69 98 12/17/22 02:21 98.3 F 95 18 136/75 98 Intake and Output 12/16/22 12/17/22 12/17/22 22:59 06:59 14:59 Other: Weight 77.111 kg Results 12/17/22 03:42 12/17/22 03:42 Cardiac Enzymes 12/17/22 Range/Units 03:42 AST 54 (17-59) U/L Coagulation 12/17/22 Range/Units 03:42 PT 10.1 (9.0-12.0) sec APTT 25.8 (22.0-30.0) sec CBC 12/17/22 Range/Units 03:42 WBC 9.8 (3.8-10.6) k/uL RBC 4.42 (4.30-5.90) m/uL Hgb 13.5 (13.0-17.5) gm/dL Hct 40.1 (39.0-53.0) % Plt Count 190 (150-450) k/uL Comprehensive Metabolic Panel 12/17/22 Range/Units 03:42 Sodium 139 (137-145) mmol/L Potassium 3.6 (3.5-5.1) mmol/L Chloride 100 (98-107) mmol/L Carbon Dioxide 30 (22-30) mmol/L BUN 24 H (9-20) mg/dL Creatinine 0.94 (0.66-1.25) mg/dL Glucose 119 H (74-99) mg/dL Calcium 9.2 (8.4-10.2) mg/dL AST 54 (17-59) U/L ALT 34 (4-49) U/L Alkaline Phosphatase 90 (38-126) U/L Total Protein 7.1 (6.3-8.2) g/dL Albumin 4.0 (3.5-5.0) g/dL Intake and Output 12/16/22 12/17/22 12/17/22 22:59 06:59 14:59 Other: Weight 77.111 kg 12/17/22 03:42 12/17/22 03:42
== END 2022-12-17 09:14 | disposition home or self-care (01) ==
LOC: EC 02:20
DX: L76.22 Postprocedural hemorrhage of skin and subcutaneous tissue following other procedure (principal); M25.562 Pain in left knee; I10 Essential (primary) hypertension; J44.9 Chronic obstructive pulmonary disease, unspecified; E78.5 Hyperlipidemia, unspecified; F17.200 Nicotine dependence, unspecified, uncomplicated; Z79.82 Long term (current) use of aspirin; Z79.899 Other long term (current) drug therapy; Z88.8 Allergy status to other drugs, medicaments and biological substances
CPT/HCPCS: 36415; 80053; 85025; 85610; 85730; 93975; 99284

== ENCOUNTER → 2023-03-08 | Outpatient (CLI) | payer MEDICARE, BC ==
--- NOTE | 2023-03-09 00:17 | CTL ---
EXAMINATION TYPE: CT Low Dose Lung DATE OF EXAM ORDERED: 03/08/2023 HISTORY: 67-year-old male F17.200 NICOTINE DEPENDENCE. Lung cancer screening CT DLP: 93.[address] CTDI: 2.4 mGy Automated exposure control for dose reduction was used. SCREENING VISIT: Annual follow-up COMPARISON: 11/21/2021 TECHNIQUE: Low dose computed tomography scan was performed through the chest with coronal and sagitta l reconstructions. CT DIAGNOSTIC QUALITY: Satisfactory FINDINGS: Loop recorder device overlying the left paramedian anterior chest wall. Heart normal size. Borderline ectasia ascending aorta at 3.5 cm. Mild atherosclerotic arch calcifications with conventio nal arterial surrounding anatomy. Trace bilateral gynecomastia. No thoracic lymphadenopathy by CT size criteria. Scattered reticular densities. Some mild groundglass changes in the lower lungs remains unchanged. Mi ld emphysematous change. More moderate paraseptal emphysema in the upper lungs. Extensive irregular b iapical pleural parenchymal scarring is redemonstrated with overall configuration unchanged from prio r. 7 mm right mid lung pulmonary nodule along the major fissure, unchanged, likely a prominent intrafiss ural lymph node. Minimal 5 mm thickening along the left midlung major fissure, axial image 170 also suggests a promine nt intrafissural lymph node, unchanged. Visualized upper abdomen shows moderate stool burden. Bones: No osseous destructive process. IMPRESSION: 1. LungsRADS 2, benign. A couple stable pulmonary nodules, likely intrafissural lymph nodes. 2. COPD with mild to moderate emphysema. Some scattered reticular interstitial scarring throughout th e lungs. Some superimposed mild groundglass change in the lower lungs also unchanged. Interstitial pn eumonitis such as NSIP or DIP is possible. CT LUNG RAD AND CT CHEST RECOMMENDATION: Lung-Rad 2 Benign Appearance or Behavior: Continue annual sc reening with LDCT in 12 months. S Modifier (other clinically significant findings): None
== END | disposition home or self-care (01) ==
LOC: RADCTMAIN 06:48
PROVIDERS: ATTEND Internal Medicine
DX: Z12.2 Encounter for screening for malignant neoplasm of respiratory organs (principal); J43.9 Emphysema, unspecified; F17.200 Nicotine dependence, unspecified, uncomplicated; R91.8 Other nonspecific abnormal finding of lung field
CPT/HCPCS: 71271

== ENCOUNTER 2023-08-08 13:20 | Day surgery (SDC) | payer MEDICARE, BC ==
[~2023-08-08 13:20] MED LIST changes: +SODIUM CHLORIDE 0.9% 1,000 ML IV SCH; -SODIUM CHLORIDE 0.9% 1,000 ML in EMPTY BAG 1 BAG IV ONE
[2023-08-08] MEDS ORDERED: SODIUM CHLORIDE 0.9% 500 ML 500 ML IV ONE (13:51)
[2023-08-08] MEDS ORDERED: CHLOROPROCAINE 3% 30 MG/ML 20 ML VIAL SQ ONE ×3 (17:45→17:58)
[2023-08-08] MEDS ORDERED: LIDOCAINE 1% INJ 10MG/ML (30 ML VIAL-PF) SQ ONE (17:58)
--- NOTE | 2023-08-08 18:09 | P.EPPROC ---
- EP Procedure Note Electrophysiology Procedure Note: Procedure: Loop explant under local anesthesia. Diagnosis: Loop monitor at [facility] Patient was brought to the EP lab in a fasting state. Written informed consent was obtained prior to the procedure. The subcutaneous device was successfully explanted under local anesthesia. Preoperative antibiotics were administered. The wound was closed in layers and dressed per protocol. Result: Successful loop monitor explantation. He tolerated the procedure well without any acute complications Nescicaine local anesthesia used Patient stated that he had lidocaine ALLERGY. However after reviewing his history it does not appear that he has true ALLERGY. 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
== END 2023-08-08 18:29 | disposition home or self-care (01) ==
LOC: CATHEP 13:20
PROVIDERS: ATTEND Internal Medicine Clinical Cardiac Electrophysiology
DX: Z45.09 Encounter for adjustment and management of other cardiac device (principal); I73.9 Peripheral vascular disease, unspecified; I48.0 Paroxysmal atrial fibrillation; I70.92 Chronic total occlusion of artery of the extremities; I10 Essential (primary) hypertension; F17.210 Nicotine dependence, cigarettes, uncomplicated; Z79.02 Long term (current) use of antithrombotics/antiplatelets; Z79.899 Other long term (current) drug therapy; Z88.4 Allergy status to anesthetic agent
CPT/HCPCS: 33286; J0690; J2401

== ENCOUNTER → 2024-01-02 | Outpatient (CLI) | payer MEDICARE, BC ==
[2024-01-02 10:30] LABS: Basophils # (A) 0.05 X 10*3/uL (0.00-0.10); Basophils % (A) 0.5 %; Eosinophils # (A) 0.17 X 10*3/uL (0.04-0.35); Eosinophils % (A) 1.8 %; HCT 43.4 % (39.6-50.0); HGB 14.4 g/dL (13.0-17.0); Lymphocytes # (A) 1.88 X 10*3/uL (0.90-5.00); Lymphocytes % (A) 19.6 %; MCH 30.3 pg (27.0-32.0); MCHC 33.2 g/dL (32.0-37.0); MCV 91.2 FL (80.0-97.0); Mean Platelet Volume 9.1 FL (9.5-12.2); Monocytes # (A) 0.95 X 10*3/uL (0.20-1.00); Monocytes % (A) 9.9 %; NRBC Per 100 WBC 0 X 10*3/uL (0.00-0.01); Neutrophils # (A) 6.51 X 10*3/uL (1.80-7.70); Platelet Count 210 X 10*3/uL (140-440); RBC 4.76 X 10*6/uL (4.40-5.60); RDW 13.2 % (11.5-14.5); WBC 9.58 X 10*3/uL (4.50-10.00)
[2024-01-02 10:55] LABS: ALT 26 U/L (10-49); AST 37 U/L (14-35); Albumin 4.3 g/dL (3.8-4.9); Albumin/Globulin Ratio 1.59 Ratio (1.60-3.17); Alkaline Phosphatase 83 U/L (41-126); BUN/Creat Ratio 28.44 Ratio (12.00-20.00); Blood Urea Nitrogen 25.6 mg/dL (9.0-27.0); Calcium 9.7 mg/dL (8.7-10.3); Carbon Dioxide 27.7 mmol/L (21.6-31.8); Chloride 100 mmol/L (96-109); Chol/HDL Ratio 3.98 Ratio; Globulin 2.7 g/dL (1.6-3.3); Glucose 108 mg/dL (70-110); LDL Cholesterol,Calculated 84.1 mg/dL (0.0-131.0); PSA Annual Screen 0.627 ng/mL (0.000-4.000); Potassium 3.4 mmol/L (3.5-5.5); Sodium 141 mmol/L (135-145); Total Bilirubin 0.2 mg/dL (0.3-1.2)
== END | disposition home or self-care (01) ==
LOC: LABWHC1 06:54
PROVIDERS: ATTEND Internal Medicine Clinical Cardiac Electrophysiology
DX: Z00.00 Encounter for general adult medical examination without abnormal findings (principal); Z12.5 Encounter for screening for malignant neoplasm of prostate; E78.5 Hyperlipidemia, unspecified
CPT/HCPCS: 80061; 80053; 84443; 85025; 36415; G0103

== ENCOUNTER → 2024-07-09 | Outpatient (CLI) | payer MEDICARE, BC ==
--- NOTE | 2024-07-09 08:35 | CTL ---
EXAMINATION TYPE: CT Low Dose Lung DATE OF EXAM: 07/09/2024 8:29 AM COMPARISON: 03/08/2023 CLINICAL INDICATION: Male, 68 years old with history of Z12.2, F17.210; Personal hx nicotine dependen ce, current smoker, 1 ppd x 35 years, hx COPD, history of tobacco use. TECHNIQUE: Multiple axial non-contrast scans were obtained from approximately the lung apices through the upper abdomen. Coronal and sagittal reformatted images were obtained. Low dose technique was uti lized. MIP were created on a separate workstation and submitted for review. CT DLP: 109.10 mGycm, Automated exposure control for dose reduction was used. CT Contrast: Contrast used: None Oral contrast used: None FINDINGS: Lack of intravenous contrast and low dose technique limits the evaluation of the vascular and soft ti ssue structures. LUNGS: No evidence of pulmonary fibrosis. No evidence of focal consolidation, pneumothorax or pleural effusion. Centrilobular emphysema changes. Paraseptal emphysema changes also present. Apical scarring bilaterally Nodules: RUL: None. RML: None. RLL: Intrafissural lymph node series 5 image 37. MILAGROS: Intrafissural lymph node series 5 image 29 LLL: None. AIRWAY: Patent and unremarkable. HEART: Size within normal limits. MEDIASTINUM: No gross evidence of adenopathy. VASCULATURE: No aortic aneurysm. MUSCULOSKELETAL: No acute osseous abnormalities SOFT TISSUES/LYMPH NODES: Unremarkable. LOWER NECK: No significant findings. UPPER ABDOMEN: No significant findings. IMPRESSION: 1. No clinically significant pulmonary nodules. 2. Moderate emphysema. CT LUNG RAD AND CT CHEST RECOMMENDATION: Lung-Rad 2 Benign Appearance or Behavior: Continue annual sc reening with LDCT in 12 months. S Modifier (other clinically significant findings): None Recommend smoking cessation (if current smoker), or continuation of smoking cessation (if prior smoke r). Annual screening for lung cancer with low-dose computed tomography is recommended in adults ages 55 to 77 years who have a 30 pack-year smoking history and currently smoke or have quit within the pa st 15 years. Screening should be discontinued once a person has not smoked for 15 years or develops a health problem that substantially limits life expectancy or the ability or willingness to have curat manuel lung surgery. Lung rads 2021 [email or web address] [facility], , 07/09/2024 8:33 AM
== END | disposition home or self-care (01) ==
LOC: RADCTMAIN 08:01
PROVIDERS: ATTEND Internal Medicine
DX: Z12.2 Encounter for screening for malignant neoplasm of respiratory organs (principal); F17.210 Nicotine dependence, cigarettes, uncomplicated; J43.9 Emphysema, unspecified; J44.9 Chronic obstructive pulmonary disease, unspecified
CPT/HCPCS: 71271

== ENCOUNTER 2024-09-25 12:40 | Day surgery (SDC) | payer MEDICARE, BC ==
[2024-09-24 09:47] VITALS: BMI 22.6
[2024-09-25 13:28] VITALS: TEMP 98.6
[2024-09-25] MEDS: LACTATED RINGERS 1,000 ML IV SCH (13:37)
[2024-09-25] MEDS: IV FLUID CONTINUATION 1,000 ML IV ONE (13:38)
[2024-09-25] MEDS ORDERED: PROPOFOL 10 MG/ML 20 ML VIAL IV ONE (14:23)
--- NOTE | 2024-09-25 14:44 | P.PCN ---
Date of Procedure: 09/25/24 Procedure(s) Performed: BRIEF HISTORY: Patient is a 68-year-old pleasant white male scheduled for an elective colonoscopy as a part of screening for colon cancer/positive Cologuard PROCEDURE PERFORMED: Colonoscopy with biopsy. PREOPERATIVE DIAGNOSIS: Screening for colon cancer/positive Cologuard. IV sedation per Anesthesia. PROCEDURE: After informed consent was obtained, the patient, was brought into the endoscopy unit. IV sedation was administered by Anesthesia under continuous monitoring. Digital rectal examination was normal. Initially the Olympus CF-160 flexible video colonoscope was then inserted in the rectum, gradually advanced into the cecum without any difficulty. Careful examination was performed as the scope was gradually being withdrawn. Ileocecal valve and the appendiceal orifice were visualized and appeared normal. Prep was excellent. Mucosa of the cecum, ascending colon normal. In the hepatic flexure there was a 4 mm sessile polyp removed by cold biopsy. In the transverse colon there was a 3 mm and 4 mm polyp removed by cold biopsy. Rest of the, transverse colon, descending colon, sigmoid colon, and rectum appeared normal. Retroflexion was performed in the rectum and no lesions were seen. The patient tolerated the procedure well. IMPRESSION: 4 mm hepatic flexure polyp status post cold biopsy 3 millimeter and 4 mm transverse colon polyp status post cold biopsy RECOMMENDATIONS: Findings of this examination were discussed with the patient as well as his family. He was advised to follow-up with the biopsy results. The biopsy reveals adenoma he can have repeat colonoscopy in 5 years..
[2024-09-25 15:12] VITALS: BP 127/74; PULSE 76; RESP 18
== END 2024-09-25 15:36 ==
LOC: ORWHC2ENDO 12:40
PROVIDERS: ATTEND Internal Medicine Gastroenterology
DX: Z12.11 Encounter for screening for malignant neoplasm of colon (principal); D12.3 Benign neoplasm of transverse colon; I48.19 Other persistent atrial fibrillation; J44.9 Chronic obstructive pulmonary disease, unspecified; I10 Essential (primary) hypertension; E78.5 Hyperlipidemia, unspecified; F17.210 Nicotine dependence, cigarettes, uncomplicated; Z89.441 Acquired absence of right ankle; Z88.8 Allergy status to other drugs, medicaments and biological substances; Z79.02 Long term (current) use of antithrombotics/antiplatelets; Z79.899 Other long term (current) drug therapy
CPT/HCPCS: 88305; 45380; J2704